=== PATIENT | female | born 1935 | race Hispanic/Latino ===

== ENCOUNTER 2017-05-27 17:40 | Inpatient (IN) | payer MEDICARE, BC ==
[2017-05-27] MEDS ORDERED: Labetalol 5mg/ml (4ml) ONE ×2 (17:46→18:13)
[2017-05-27] MEDS ORDERED: Labetalol 5mg/ml (4ml) IVP STA ×2 (17:49→18:12)
--- NOTE | 2017-05-27 17:49 | ED PDOC ---
HPI:STROKE - Time Time: 17:55 - Historian Historian: Patient, EMS - Chief Complaint Chief Complaint: Weakness, Mental status change - Onset Date: 05/27/17 Time: 17:15 - Timing Timing: Currently Symptomatic - Location Locate left: Lower extremity - TPA Positive for Contraindication: Yes Reason tPA is not being Administered: CT concerning for brain metastasis - Notes: Notes:: 81yo female arrives via ALS, per EMS report was at a restaurant had a sudden change in mental status with weakness of left side and neglect. Had loss of consciousness for approx 90sec also, unclear if seizure activity reported. EMS reports hypertensive and tachycardic en route. On arrival to ED had improved left side strength with partial neglect, confusion and mild word finding difficulties. History limited given AMS. NIHSS Stroke Scale - Date/Time Evaluation Performed Date Performed: 05/27/17 Time Performed: 17:46 When Was NIHSS Performed: Baseline - How Severe is the Stroke Level of Consciousness: 0=Alert LOC to Questions: 1=One correct LOC to commands: 1=Obeys one correctly Best Gaze: 1=Partial gaze palsy Visual: 0=No visual loss Facial: 1=Minor asymmetry Motor Arm - Left: 1=Drift noted before 10 sec Motor Arm - Right: 0=No drift Motor Leg - Left: 1=Drift before 5 sec Motor Leg - Right: 0=No drift Limb Ataxia: 1=Present Upper or Lower Sensory: 0=Normal Best Language: 0=No aphasia Dysarthia: 0=Normal articulation Extinction & Inattention (Neglect): 1=Partial neglect (mild hernandez-attention) Score: 8 rTPA Inclusion/Exclusion - Refusal of Treatment Patient Refused Treatment: No - Inclusion Criteria for Altepase Patient is 18 years or Older: Yes The Clinical Diagnosis of Ischemic Stroke That is Causing a Potentially Disabling Neurological Deficit: No Time of Onset is Well Established to be Less Than 270 Minute Before Treatment Would Begin: No Risk/Benefit Discussed With Patient/Family Member Present: Yes - Exclusion Criteria for Altepase Uncontrolled Hypertension at Time of Treatment (Systolic BP above 185 or Diastolic BP above 110 mmHg): Yes Active Internal Bleeding: No - Warning to TPA With Conditions Following Conditions Weighed Against Anticipated Benefit: Yes Condition: Rapid Improvement, Age Greater Than 75 years Past Medical History Reviewed: Historical Data, Nursing Documentation, Vital Signs - Medical History PMH: Denies: No Chronic Diseases Other PMH: hasnt been to a PMD in 3-4 years - Surgical History Other surgeries: unknown at arrival, unable to obtain secondary to confusion - Family History Family History: States: Unknown Family Hx - Living Arrangements Living Arrangements: Other - Social History Current smoker - smoking cessation education provided: Yes - Home Medications Home Medications: Ambulatory Orders Medication Instructions Recorded Baclofen [Lioresal] 10 mg PO PRN PRN 05/28/17 Budesonide/Formoterol Fumarate 4.5 mcg PRN PRN 05/28/17 [Symbicort 160-4.5 Mcg Inhaler] Diclofenac Sodium [Voltaren] 100 gm TP PRN 05/28/17 Losartan/Hydrochlorothiazide 1 each PO AC 05/28/17 [Losartan-Hctz 100-12.5 mg Tab] Loteprednol Etabonate [Alrex 5 ml] 5 ml OP BID 05/28/17 MetFORMIN [glucoPHAGE] 1,000 mg AC 05/28/17 Montelukast Sodium [Singulair] 10 mg PO AC 05/28/17 Morphine [MS Contin] 60 mg PO BID 05/28/17 Omeprazole 40 mg PO AC 05/28/17 Oxycodone HCl/Acetaminophen 1 each PO PRN 05/28/17 [Percocet 10-325 mg Tablet] Oxycodone HCl/Acetaminophen 1 each PO Q6 05/28/17 [Percocet 10-325 mg Tablet] Pravastatin Sodium [Pravachol] 40 mg PO AC 05/28/17 Pregabalin [Lyrica] 75 mg PO AC 05/28/17 Sertraline [Zoloft] 25 mg PO AC 05/28/17 - Allergies Allergies/Adverse Reactions: Allergies Allergy/AdvReac Type Severity Reaction Status Date / Time No Known Allergies Allergy Verified 05/27/17 17:46 Review of Systems Review Of Systems: ROS cannot be obtained secondary to pt's inabilty to answer questions. Physical Exam - Reviewed Nursing Documentation Reviewed: Yes Vital Signs Reviewed: Yes - Physical Exam Appears: Positive for: Non-toxic (word finding difficulties / slow to respond but clear speech) Head Exam: Positive for: ATRAUMATIC, NORMAL INSPECTION, NORMOCEPHALIC Skin: Positive for: Warm, Pallor Eye Exam: Positive for: PERRL. Negative for: EOMI (L neglect on arrival) ENT: Positive for: Normal ENT Inspection. Negative for: Tonsillar Exudate Neck: Positive for: Normal, Painless ROM Cardiovascular/Chest: Positive for: Tachycardia Respiratory: Positive for: Normal Breath Sounds. Negative for: Respiratory Distress Gastrointestinal/Abdominal: Positive for: Bowel Sounds, Soft. Negative for: Tenderness Back: Positive for: Normal Inspection Extremity: Positive for: Normal ROM Neurologic/Psych: Positive for: Alert, Motor/Sensory Deficits (LUE and LLE strength 4/5, RUE/RLE 5/5, intermittent L neglect, AAOx2 (person/hospital)), Facial Droop (trace L facial droop, resolved in ED) - Laboratory Results Result Diagrams: 05/28/17 04:30 05/28/17 02:00 - ECG ECG: Positive for: Interpreted By Me ECG Rhythm: Positive for: Sinus Rhythm, Nonspecific Changes Rate: 90 O2 Sat by Pulse Oximetry: 96 Pulse Ox Interpretation: Normal - Radiology X-Ray: Interpreted by Me X-Ray Interpretation: Other (R lower lobe mass/infiltrate) - Critical Care Total Time (In Min): 75 Comments: pt required immediate and recurrent bedside attention for unstable vital signs and concern for acute cerebral event on arrival Medical Decision Making Medical Decision Making: Code stroke was initiated Labetolol initiated for malignant hypertension and tachycardia CT brain reviewed w Dr Phillips radiologist, acute or subacute infarct R MCA w edema Given known rapid onset TPA was initially considered however after CXR reviewed and d/w neurology Dr Stokes concern for cytotoxic edema from metastasis considered thus TPA held. CTA head/neck no large vessel occlusion. ASA initiated. labs reviewed, mild hyperglycemia. BP and tachycardia improved over ED course. Mental status improved although intermittent periods of L neglect and confusion. Discussed initial findings w family- concern for malignancy w mets given long smoking history 40+ years. Hasnt been to PMD in many years. They state prior she was very function, drove herself to the restaurant tonight. Keppra loaded for likely seizure /post ictal period prehospital and on arrival. Dr Stokes saw patient at bedside. MRI brain pending at time of admission. No PMD admitted medicine nutritional services cook Dr Ronnie Armas ICU to handle care overnight. Disposition - Clinical Impression Clinical Impression: Lung mass, Intracranial mass - Patient ED Disposition Is Patient to be Admitted: Yes Counseled Patient/Family Regarding: Studies Performed, Diagnosis - Disposition Disposition Time: 18:55 Condition: FAIR - Pt Status Changed To: Hospital Disposition Of: Inpatient - Admit Certification Admit to Inpatient:: After my assessment, the patient will require hospitalization for at least two midnights. This is because of the severity of symptoms shown, intensity of services needed, and/or the medical risk in this patient being treated as an outpatient. - POA Present On Arrival: None
[2017-05-27 17:52] VITALS: BMI 18.3
[2017-05-27] MEDS ORDERED: Iodixanol 320 MG/ML 100 ML BOTTLE IV ONE (17:57)
[2017-05-27] MEDS ORDERED: Sodium Chloride 0.9% 100 ML ONE (17:57)
[2017-05-27] MEDS ORDERED: Sodium Chloride 0.9% 1,000 ML IV SCH (18:00)
--- NOTE | 2017-05-27 18:18 | CT ---
PROCEDURE: CT HEAD WITHOUT CONTRAST. HISTORY: code stroke COMPARISON: None available. TECHNIQUE: Axial computed tomography images were obtained through the head/brain without intravenous contrast. Radiation dose: Total exam DLP = 826.15 mGy-cm. This CT exam was performed using one or more of the following dose reduction techniques: Automated exposure control, adjustment of the mA and/or kV according to patient size, and/or use of iterative reconstruction technique. FINDINGS: HEMORRHAGE: No intracranial hemorrhage. BRAIN: Cytotoxic edema is identified at the right temporoparietal distribution moderately reflecting a partial right MCA acute or subacute brain infarction. Limited local mass effect is appreciated at the affected right temporal parietal distribution. There is also lucency identified at the inferior left frontal lobe medially. Artifact from the frontal bones obscure this area somewhat. This may represent an acute or even chronic infarct. Is difficult to differentiate between the two at this time. There is no significant mass effect. Follow-up MRI is advised. Limited bifrontal chronic lacunes are dilated perivascular spaces are identified. A diffuse cerebral atrophy and chronic microangiopathy are manifest by expansion of the ventricular sulcal sternal spaces as well as limited periventricular and occasional subcortical white matter lucency. Posterior fossa contents appear grossly nonfocal. VENTRICLES: Unremarkable. No hydrocephalus. CALVARIUM: Unremarkable. PARANASAL SINUSES: A 1.4 cm hyperdensity seen related to the left frontal sinus suggestive of probable osteoma. Perineal sinuses are otherwise unremarkable. MASTOID AIR CELLS: Unremarkable as visualized. No inflammatory changes. OTHER FINDINGS: None. IMPRESSION: Findings suggest acute or subacute brain infarction and sub distribution of the right MCA. Lucency at the medial left frontal base is suspicious for this same though a chronic infarct is difficult to completely exclude here. Follow-up MRI is advised. No intracranial hemorrhage is appreciated. Limited local mass effect effaces a few sulci at the right temporoparietal infarction territory. Limited age-related neuro degenerative changes. Questionable chronic lacunes bilateral frontal lobes. Findings discussed with Dr. Carroll 05/27/2017 6:10 p.m.
[2017-05-27 18:45] LABS: BASO % 0.4 % (0.0-2.0); HEMOGLOBIN 12.1 g/dL (12.0-16.0); LYMPH # 1.6 K/uL (1.0-4.3); LYMPH % 24.3 % (20.0-40.0); MEAN CELL VOLUME 97.5 fl (81.0-99.0); MEAN CORPUSCULAR HEMOGLOBIN 33.5 pg (27.0-31.0); MEAN CORPUSCULAR HGB CONC 34.4 g/dL (33.0-37.0); MEAN PLATELET VOLUME 7.3 fl (7.2-11.7); MONO # 0.3 K/uL (0.0-0.8); MONO % 5.4 % (0.0-10.0); NEUT # 4.5 K/uL (1.8-7.0); NEUT % 69.9 % (50.0-75.0); RBC 3.61 Mil/uL (3.80-5.20); RED CELL DISTRIBUTION WIDTH 13.6 % (11.5-14.5); WHITE BLOOD COUNT 6.5 K/uL (4.8-10.8)
--- NOTE | 2017-05-27 18:47 | CT ---
PROCEDURE: CT Angiography of the Brain. HISTORY: neglect, L weakness COMPARISON: None available. TECHNIQUE: CT angiography of the intracranial arteries was performed. Coronal and sagittal maximum intensity projection reformated images were generated. Contrast Dose: Visipaque 320, 80 cc Radiation dose: Total exam DLP = 2355.59 mGy-cm. This CT exam was performed using one or more of the following dose reduction techniques: Automated exposure control, adjustment of the mA and/or kV according to patient size, and/or use of iterative reconstruction technique. This CT exam was performed using one or more of the following dose reduction techniques: Automated exposure control, adjustment of the mA and/or kV according to patient size, and/or use of iterative reconstruction technique. FINDINGS: INTERNAL CEREBRAL ARTERIES: Unremarkable. The skull base, petrous, and supraclinoid segments are bilaterally widely patent. Mild atherosclerotic plaque is seen at the left greater the right cavernous internal carotid artery segments bilaterally. ANTERIOR CEREBRAL ARTERIES: Unremarkable. A1 and A2 segments are widely patent. Smaller distal branches unremarkable, as visualized. MIDDLE CEREBRAL ARTERIES: Unremarkable. M1 and M2 segments are widely patent. Perisylvian branches grossly symmetric. POSTERIOR CIRCULATION: Basilar Artery: Unremarkable. Distal Vertebral Arteries: Unremarkable. Posterior Cerebral Arteries: Unremarkable. Posterior Inferior Cerebellar Arteries: Unremarkable. NECK CTA: Common Carotid arteries: The vast majority of the bilateral common carotid artery appears widely patent from their origins up to the bilateral carotid bulb levels. However, there is mild to moderate atherosclerotic plaque identified in the right carotid bulb and prominent left carotid bulbar atherosclerotic plaque. Left-sided atheroma extends into the proximal left ICA somewhat. Internal Carotid arteries: No significant right internal carotid artery stenosis identified. However, there is a moderate left ICA stenosis at the origin due to excessive left carotid bulbar atherosclerosis. External Carotid arteries: Appear unremarkable bilaterally. Vertebral arteries: The bilateral vertebral arteries appear normal in caliber from their origins to their junction with the basilar artery. No significant stenosis or definite pattern of dissection. ANEURYSM/ VASCULAR MALFORMATIONS: None. OTHER FINDINGS: None. IMPRESSION: Other than limited bilateral cavernous ICA atherosclerotic changes, intracranial MR angiogram is otherwise unremarkable and there is no evidence of definite arterial occlusion or significant stenosis. Extensive left carotid bulbar plaque extends into the left ICA origin resulting in a moderate stenosis by standard NASCET criteria. The remainder of the left ICA is widely patent. No significant right common or internal carotid stenosis identified. Mild right carotid bulbar atherosclerotic plaque.
[2017-05-27 19:04] LABS: ALBUMIN 3.5 g/dL (3.5-5.0); CALCIUM 8.2 mg/dL (8.4-10.2)
[2017-05-27 19:13] LABS: INR 0.9 (0.9-1.2); PARTIAL THROMBOPLASTIN TIME 22.8 Seconds (25.6-37.1)
[2017-05-27 19:18] LABS: TROPONIN I 0.053 ng/mL (0.00-0.120)
[2017-05-27] MEDS ORDERED: Labetalol 5mg/ml (4ml) IVP PRN (19:57)
[2017-05-27] MEDS ORDERED: Acetaminophen 325 MG/10.15 ML NG PRN (19:59)
[2017-05-27] MEDS ORDERED: Gadodiamide 287 MG/ML VIAL (15ML) IV ONE (20:06)
--- NOTE | 2017-05-27 21:07 | CP.PCM.CON ---
History of Present Illness - History of Present Illness History of Present Illness: HPI: became unresponsive, ?L sided weakness HPI: This is a 81 y/o female with no diagnosed chronic medical conditions. From what she remembers, she states that she drove to a restaurant and was having dinner with a friend and then she remembers EMS bringing her to the hospital. Apparently, per report, she was demonstrating L sided neglect and/or weakness and then became unresponsive for some unspecified period of time. This had mostly resolved in the ED. Patient had a stroke w/u in ED and NIH score was 8. On CT however, she had some suspicious appearing lesions and was sent for MRI. Patient was not a candidate for TPA, tali given these lesions. Currently patient has no c/c other than JIMENEZ. No CP, SOB. No f/c/n/v/d. She denies CP/SOB at this time. No f/c. No Cough. ROS: 14 systems reviewed, negative other than HPI MHx: No known prior MHx SHx: None Allergies: NKDA Medications: No Rx medications Family Hx: Patient cannot provide Social Hx: Patient lives alone but has family nearby, no tobacco, no EtOH Surrogate Dec Mkr: Daughter, info on chart Past Patient History - Past Social History Smoking Status: Never Smoked - PSYCHIATRIC Hx Substance Use: No - SURGICAL HISTORY Other/Comment: unable to obtain information Meds Allergies/Adverse Reactions: Allergies Allergy/AdvReac Type Severity Reaction Status Date / Time No Known Allergies Allergy Verified 05/27/17 17:46 - Medications Medications: Current Medications Acetaminophen (Tylenol 325mg Tab) 650 mg PO Q6 PRN PRN Reason: Fever >100.4 F Aspirin (Ecotrin) 81 mg PO DAILY NOREEN Atorvastatin Calcium (Lipitor) 40 mg PO DAILY NOREEN Insulin Human Lispro (Humalog) 0 units SC ACHS NOREEN PRN Reason: Protocol Labetalol HCl (Trandate) 10 mg IVP Q6H PRN PRN Reason: SBP > 180 Ondansetron HCl (Zofran Inj) 4 mg IVP Q6H PRN PRN Reason: Nausea/Vomiting Physical Exam - Constitutional Appears: No Acute Distress - Head Exam Head Exam: ATRAUMATIC, NORMOCEPHALIC - Eye Exam Eye Exam: EOMI, PERRL - ENT Exam ENT Exam: Mucous Membranes Moist - Neck Exam Neck exam: Positive for: Full Rom - Respiratory Exam Respiratory Exam: Clear to Auscultation Bilateral, NORMAL BREATHING PATTERN - Cardiovascular Exam Cardiovascular Exam: REGULAR RHYTHM, +S1, +S2 - GI/Abdominal Exam GI & Abdominal Exam: Normal Bowel Sounds, Soft - Extremities Exam Extremities exam: Positive for: full ROM, normal inspection - Neurological Exam Neurological exam: Alert, Oriented x3 Additional comments: patient with poor hearing, o/w no focal deficits - Psychiatric Exam Psychiatric exam: Normal Affect, Normal Mood - Skin Skin Exam: Dry, Warm Results - Vital Signs Recent Vital Signs: Last Vital Signs Temp 98.8 F 05/27/17 19:30 Pulse 90 05/27/17 19:30 Resp 13 05/27/17 19:30 BP 156/85 H 05/27/17 19:30 Pulse Ox 92 L 05/27/17 19:30 - Labs Result Diagrams: 05/27/17 18:30 05/27/17 18:30 Labs: Laboratory Results - last 24 hr 05/27/17 05/27/17 05/27/17 18:30 18:30 18:30 WBC 6.5 RBC 3.61 L Hgb 12.1 Hct 35.2 MCV 97.5 MCH 33.5 H MCHC 34.4 RDW 13.6 Plt Count 257 MPV 7.3 Neut % (Auto) 69.9 Lymph % (Auto) 24.3 [place] % (Auto) 5.4 Eos % (Auto) 0.0 Baso % (Auto) 0.4 Neut # (Auto) 4.5 Lymph # (Auto) 1.6 [place] # (Auto) 0.3 Eos # (Auto) 0.0 Baso # (Auto) 0.0 PT 10.0 INR 0.9 APTT 22.8 L Sodium 133 Potassium 4.8 Chloride 103 Carbon Dioxide 19 L Anion Gap 16 BUN 28 H Creatinine 1.1 Est GFR ( Amer) 58 Est GFR (Non-Af Amer) 48 Random Glucose 194 H Calcium 8.2 L Total Bilirubin 0.6 AST 36 ALT 13 Alkaline Phosphatase 75 Troponin I 0.0530 Total Protein 7.1 Albumin 3.5 Globulin 3.5 Albumin/Globulin Ratio 1.0 Triglycerides 112 Cholesterol 165 LDL Cholesterol Direct 55 HDL Cholesterol 83 H Blood Type Antibody Screen BBK History Checked 05/27/17 18:30 WBC RBC Hgb Hct MCV MCH MCHC RDW Plt Count MPV Neut % (Auto) Lymph % (Auto) [place] % (Auto) Eos % (Auto) Baso % (Auto) Neut # (Auto) Lymph # (Auto) [place] # (Auto) Eos # (Auto) Baso # (Auto) PT INR APTT Sodium Potassium Chloride Carbon Dioxide Anion Gap BUN Creatinine Est GFR ( Amer) Est GFR (Non-Af Amer) Random Glucose Calcium Total Bilirubin AST ALT Alkaline Phosphatase Troponin I Total Protein Albumin Globulin Albumin/Globulin Ratio Triglycerides Cholesterol LDL Cholesterol Direct HDL Cholesterol Blood Type O POSITIVE Antibody Screen Negative BBK History Checked No verified bt - EKG Data EKG Interpreted by: Myself EKG shows normal: Sinus rhythm Rate: Normal - EKG Data When Compared to Previous EKG: No Significant Change EKG comments: NSR, possible LVH - Imaging and Cardiology Chest x-ray Status: Image reviewed by me (?scarring or opacity R lung field) MRI - head Status: Image reviewed by me (b/l enhancing lesions c/f mets), Report reviewed by me Assessment & Plan (1) Acute CVA (cerebrovascular accident) Assessment and Plan: 81 y/o female with no known chronic medical conditions who comes in with symptoms c/f an acute CVA, however, she is found on MRI to have multiple lesions suspicious for mets and ?lesion on CXR. -admit ICU -Serial trops, Echo ordered as part of CVA workup for now, though this may not be CVA -Neuro consult in AM -ASA and high dose statin (starting 40 mg) -- continue for now; if clear there was no cva/tia, can d/c these -Given IC edema, will start IV decadron 4 mg q6h + PPI -Patient given dose of IV keppra in ER; defer to neuro to continue or not -ACHS accucheck + SSI; A1C pending -Tylenol for fevers PRN -SCDs for DVT PPx for now Status: Acute (2) Intracranial mass Status: Acute (3) Lung mass Status: Acute (4) DVT prophylaxis Status: Acute
[2017-05-27] MEDS: Insulin Lispro (humaLOG) 100 Units/ml Inj SC SCH (22:15)
--- NOTE | 2017-05-27 22:51 | MRI ---
EXAM: MR Head Without and With Intravenous Contrast CLINICAL HISTORY: 81 years old, female; Signs and symptoms; Other: R/O mets, , code stroke; Additional info: RO mets TECHNIQUE: Magnetic resonance images of the head/brain without and with intravenous contrast in multiple planes. CONTRAST: 12 mL of OMNISCAN administered intravenously. COMPARISON: CTA HEAD/NECK CODE STROKE 2017-05-27 18:01 FINDINGS: Brain: There are multiple enhancing lesions in the cerebral hemisphere bilaterally consistent with metastasis. The largest lesion is in the right posterior temporal lobe measuring 2.2 x 1.9 x 1.6 cm with moderate surrounding vasogenic edema. There is a 9 x 8 x 6 mm enhancing lesion in the inferior left frontal lobe with surrounding edema. There is a 4 x 6 x 5 mm enhancing lesion in the right anterior temporal lobe. There is a 9 x 7 x 7 mm enhancing lesion in the right posterior parietal cortex. The There is no evidence of acute infarct or hemorrhage. There are punctate foci of hypointense signal on T2-weighted gradient echo imagesconsistent with hemosiderin products from chronic microhemorrhage. There is mild diffuse cerebral atrophy present, consistent with this patient's age. There is mild patchy increased signal intensity within the subcortical white matter, consistent with chronic ischemic changes. Ventricles: The ventricular system demonstrates mild diffuse compensatory enlargement. Bones/joints: Unremarkable. Sinuses: Unremarkable as visualized. No acute sinusitis. Mastoid air cells: Unremarkable as visualized. No mastoid effusion. Orbits: Unremarkable as visualized. IMPRESSION: Multiple enhancing lesions in the bilateral cerebral hemisphere consistent with metastasis. No evidence of acute infarct.
[2017-05-27] MEDS ORDERED: Dexamethasone 4 MG in Sodium Chloride 0.9% 50 ML IVPB SCH (23:59)
[2017-05-28] MEDS ORDERED: Dexamethasone 4 mg/1 ml IVP SCH (00:15)
--- NOTE | 2017-05-28 00:29 | CP.PCM.CON ---
History of Present Illness - History of Present Illness History of Present Illness: 81 yr old woman, right handed, who was in her usual state of health until approximately 2 hours ago, when she developed an acute change in mental status. She was at a restaurant, drove there and was found to have some word finding difficulty and right arm weakness that the family thinks was new. This resolved quickly however. The patient was a heavy smoker but never had a history of lung cancer. We decided not to give TPA in light of hypodensities in bilateral cerebral hemispheres that i felt may be mets and were too dark to be strokes. PMH/PSH: pnh of lung ca FH/SH: long time smoker, occasional etoh. Has several children. All: nkda. on exam: aaox3. speech slightly dysarthric. Can name some objects, repetition intact. VFF Right sided weakness, arm. 5/5 all other muscle groups. sensory: nodeficits. +3 dtr ul and ll. Past Patient History - Past Social History Smoking Status: Never Smoked - PSYCHIATRIC Hx Substance Use: No - SURGICAL HISTORY Other/Comment: unable to obtain information Meds Allergies/Adverse Reactions: Allergies Allergy/AdvReac Type Severity Reaction Status Date / Time No Known Allergies Allergy Verified 05/27/17 17:46 - Medications Medications: Current Medications Sodium Chloride (Sodium Chloride 0.9%) 1,000 mls @ 100 mls/hr IV .Q10H NOREEN Last Admin: 05/27/17 18:37 Dose: 100 mls/hr Results - Vital Signs Recent Vital Signs: Last Vital Signs Temp 98.3 F 05/27/17 18:47 Pulse 78 05/27/17 18:47 Resp 20 05/27/17 18:47 BP 150/70 05/27/17 18:47 Pulse Ox 98 05/27/17 18:47 - Labs Result Diagrams: 05/27/17 18:30 05/27/17 18:30 Labs: Laboratory Results - last 24 hr 05/27/17 05/27/17 05/27/17 18:30 18:30 18:30 WBC 6.5 RBC 3.61 L Hgb 12.1 Hct 35.2 MCV 97.5 MCH 33.5 H MCHC 34.4 RDW 13.6 Plt Count 257 MPV 7.3 Neut % (Auto) 69.9 Lymph % (Auto) 24.3 [place] % (Auto) 5.4 Eos % (Auto) 0.0 Baso % (Auto) 0.4 Neut # (Auto) 4.5 Lymph # (Auto) 1.6 [place] # (Auto) 0.3 Eos # (Auto) 0.0 Baso # (Auto) 0.0 PT 10.0 INR 0.9 APTT 22.8 L Sodium 133 Potassium 4.8 Chloride 103 Carbon Dioxide 19 L Anion Gap 16 BUN 28 H Creatinine 1.1 Est GFR ( Amer) 58 Est GFR (Non-Af Amer) 48 Random Glucose 194 H Calcium 8.2 L Total Bilirubin 0.6 AST 36 ALT 13 Alkaline Phosphatase 75 Troponin I 0.0530 Total Protein 7.1 Albumin 3.5 Globulin 3.5 Albumin/Globulin Ratio 1.0 Triglycerides 112 Cholesterol 165 LDL Cholesterol Direct 55 HDL Cholesterol 83 H BBK History Checked 05/27/17 18:30 WBC RBC Hgb Hct MCV MCH MCHC RDW Plt Count MPV Neut % (Auto) Lymph % (Auto) [place] % (Auto) Eos % (Auto) Baso % (Auto) Neut # (Auto) Lymph # (Auto) [place] # (Auto) Eos # (Auto) Baso # (Auto) PT INR APTT Sodium Potassium Chloride Carbon Dioxide Anion Gap BUN Creatinine Est GFR ( Amer) Est GFR (Non-Af Amer) Random Glucose Calcium Total Bilirubin AST ALT Alkaline Phosphatase Troponin I Total Protein Albumin Globulin Albumin/Globulin Ratio Triglycerides Cholesterol LDL Cholesterol Direct HDL Cholesterol BBK History Checked No verified bt - Imaging and Cardiology CT scan - head Status: Image reviewed by me, Report reviewed by me (ct shows inferior left frontal lobe hypodensity with vasogenic edema and right temporo parietal lobe lesion, no midine shift but with mass effect. ) Assessment & Plan - Assessment and Plan (Free Text) Assessment: 81 yr old woman with presentation that suggests acute stroke, but neuroimaging showing left frontal lesion that is hypodense and a right parietotemporal lesion hypodense with no hemorrhagic conversion, whose NIH scale shows that she has right sided weakness, and aphasia, minimal, and right sided weakness. She is not a TPA candidate, but I am very concerned that she has mets to the brain, with her history of smoking. PLan: 1. MRI Brain with and without contrast stat 2. Stroke workup including ECHO, CTA, lipid profile, 3. PT.ST,OT
[2017-05-28 02:34] LABS: CALCIUM 8.8 mg/dL (8.4-10.2)
[2017-05-28 02:50] LABS: TROPONIN I 2.45 ng/mL (0.00-0.120)
[2017-05-28 05:37] LABS: HEMOGLOBIN 12.5 g/dL (12.0-16.0); MEAN CELL VOLUME 96.2 fl (81.0-99.0); MEAN CORPUSCULAR HEMOGLOBIN 33.5 pg (27.0-31.0); MEAN CORPUSCULAR HGB CONC 34.8 g/dL (33.0-37.0); RBC 3.74 Mil/uL (3.80-5.20); RED CELL DISTRIBUTION WIDTH 13.3 % (11.5-14.5); WHITE BLOOD COUNT 6.4 K/uL (4.8-10.8)
[2017-05-28] MEDS: Dexamethasone 4 mg/1 ml IVP SCH ×4 (05:54→22:09)
[2017-05-28] MEDS: Insulin Lispro (humaLOG) 100 Units/ml Inj SC SCH ×4 (07:55→22:09)
[2017-05-28] MEDS: Pantoprazole 40 mg EC Tab PO SCH ×2 (08:51→09:12)
[2017-05-28] MEDS ORDERED: Pneumococcal 23-Valent Vaccine IM ONE (09:00)
--- NOTE | 2017-05-28 09:06 | RAD ---
HISTORY: Code Stroke COMPARISON: No prior. FINDINGS: LUNGS: Right basilar opacity. Right hilar surgical clips. Prominence of the bilateral interstitial markings, likely chronic. PLEURA: No significant pleural effusion identified, no pneumothorax apparent. CARDIOVASCULAR: Atherosclerotic aortic calcifications. Cardiomediastinal silhouette enlarged. OSSEOUS STRUCTURES: Degenerative changes. VISUALIZED UPPER ABDOMEN: Excreted intravenous contrast in the renal collecting systems. OTHER FINDINGS: None. IMPRESSION: Right basilar opacity representing infiltrate versus neoplasm. Follow-up to resolution. Alternatively, CT scan can be obtained for further evaluation.
--- NOTE | 2017-05-28 10:15 | CP.PCM.PN ---
Subjective - Date & Time of Evaluation Date of Evaluation: 05/28/17 Time of Evaluation: 10:12 - Subjective Subjective: Ms. Booth was seen and examined at the bedside in ICU. She is alert, oriented. She denies any headache, dizziness, lightheadedness, blurred vision, or diplopia. She is able to follow commands. She claims of inability to sleep last night. MRI of the brain showed multiple enhancing lesions in the bilateral cerebral hemisphere consistent with metastasis. No evidence of acute infarct. She has escalante catheter draining to a clear yellow urine. There was no untoward events overnight. Objective - Vital Signs/Intake and Output Vital Signs (last 24 hours): Temp Pulse Resp BP Pulse Ox 97.5 F L 90 27 H 126/92 H 96 05/28/17 08:00 05/28/17 09:59 05/28/17 08:00 05/28/17 08:00 05/28/17 09:59 Intake and Output: 05/28/17 05/28/17 06:59 18:59 Intake Total 1060 Output Total 100 Balance 960 - Medications Medications: Current Medications Acetaminophen (Tylenol 325mg Tab) 650 mg PO Q6 PRN PRN Reason: Fever >100.4 F Acetaminophen (Tylenol 325mg Tab) 650 mg PO Q6H PRN PRN Reason: Pain, Mild (1-3), headache Aspirin (Aspirin) 325 mg PO DAILY [facility] Last Admin: 05/28/17 09:12 Dose: 325 mg Atorvastatin Calcium (Lipitor) 40 mg PO DAILY [facility] Last Admin: 05/28/17 09:12 Dose: 40 mg Dexamethasone (Decadron Inj) 4 mg IVP Q6 [facility] Last Admin: 05/28/17 05:54 Dose: 4 mg Insulin Human Lispro (Humalog) 0 units SC ACHS [facility] PRN Reason: Protocol Last Admin: 05/28/17 07:55 Dose: Not Given Labetalol HCl (Trandate) 10 mg IVP Q6H PRN PRN Reason: SBP > 180 Metoprolol Tartrate (Lopressor) 25 mg PO Q12 [facility] Last Admin: 05/28/17 06:42 Dose: 25 mg Pantoprazole Sodium (Protonix Ec Tab) 40 mg PO DAILY [facility] Last Admin: 05/28/17 09:12 Dose: 40 mg - Labs Labs: 05/28/17 04:30 05/28/17 02:00 PT 10.0 Seconds (9.8-13.1) 05/27/17 18:30 INR 0.9 (0.9-1.2) 05/27/17 18:30 APTT 22.8 Seconds (25.6-37.1) L 05/27/17 18:30 - Constitutional Appears: No Acute Distress - Head Exam Head Exam: NORMAL INSPECTION - Neurological Exam Neurological Exam: Alert, Awake, Oriented x3 Neuro motor strength exam: Left Upper Extremity: 5, Right Upper Extremity: 5, Left Lower Extremity: 5, Right Lower Extremity: 5 Additional comments: aaox3. speech slightly dysarthric. Can name some objects, repetition intact.Right sided weakness, arm. 5/5 all other muscle groups. Sensation remains intact. Assessment and Plan (1) Intracranial mass Assessment & Plan: Case discussed with Dr. Stokes, continue all current medical, physical, and occupational therapies. Pending echocardiogram. Status: Acute
[2017-05-28] MEDS ORDERED: Iohexol 240 (50 ml) PO ONE (11:42)
--- NOTE | 2017-05-28 11:42 | CP.CCUPN ---
CCU Subjective - Physician Review Subjective (Free Text): All Physician notes ad Nursing notes reviewed: Awake and responsive, no new focal deficits. Brief episode of nausea and vomiting this AM. No observed seizure activity, though appears disoriented to time. Other Vitals and I/Os reviewed. ROS: No other pertinent negs or positives on 10+ system review. PMSFH: All other historical Nursing and physician documentation reviewed to date; no new pertinent info noted relevant to current medical problems. CT and MRI brain imaging results reviewed: R posterior temporal / R anterior temporal/ L Inferior frontal / R posterior parietal areas of metastatic appearing lesions. CXR: shows RLL peripheral haziness. EKG: sinus 90, +LVH, no ischemic ST-T wave changes. IMPRESSION / MAJOR PROBLEMS NOW: 1. 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 r/o other ischemic / thrombotic CVA 4. Azotemia / Dehydration 5. Troponin elevation 2 TEACHER PHYSICALLY IMPAIRED lesions and Neurosympathetic disease, r/o Myocardial Ischemia PLAN: 1. HOB elevation, Neurochecks, Seizure precautions. Decadron as per Neurology. Discuss with Neurology : re- Mannitol use. 2. Cautious Saline IVF hydration. 3. CT Chest to further delineate RLL findings, r/o tumor Lung CA 4. Consider Neurosurgical eval. 5. ECHO ordered. CCU Objective - Vital Signs / Intake & Output Vital Signs (Last 4 hours): Vital Signs Temp Pulse Resp BP Pulse Ox 05/28/17 10:00 79 19 156/84 H 100 05/28/17 09:59 90 96 05/28/17 08:00 97.5 F L 86 27 H 126/92 H 90 L Intake and Output (Last 8hrs): Intake & Output 05/27/17 05/28/17 05/28/17 22:59 06:59 14:59 Intake Total 1000 60 100 Output Total 100 10 Balance 900 60 90 Weight 114 lb 14.4 oz Intake: IV 1000 Oral 60 100 Output: Urine 100 Urethral ([place]il[place]) 100 Emesis 10 - Physical Exam Head: Positive for: Normocephalic Pupils: Positive for: PERRL Extroacular Muscles: Positive for: EOMI Conjunctiva: Positive for: Normal. Negative for: Icteric Ears: Positive for: Normal Mouth: Positive for: Moist Mucous Membranes Neck: Positive for: Normal Range of Motion. Negative for: JVD Respiratory/Chest: Positive for: Clear to Auscultation, Tender to Palpation Cardiovascular: Positive for: Regular Rate and Rhythm. Negative for: Murmurs, Normal S1, S2, Rub Abdomen: Positive for: Normal Bowel Sounds, Mass/Organomegaly. Negative for: Tenderness, Distention, Rebound Lower Extremity: Positive for: Cyanosis. Negative for: Edema, CALF TENDERNESS, NORMAL PULSES Skin: Positive for: Warm, Dry Psychiatric: Positive for: Alert. Negative for: Oriented x 3 (person and place only), Anxious, Agitated - Medications Active Medications: Active Medications Generic Name Dose Route Start Last Admin Trade Name Freq PRN Reason Stop Dose Admin Acetaminophen 650 mg 05/27/17 20:05 Tylenol 325mg Tab PO Q6 PRN Fever >100.4 F Acetaminophen 650 mg 05/27/17 23:51 Tylenol 325mg Tab PO Q6H PRN Pain, Mild (1-3), headache Aspirin 325 mg 05/28/17 09:00 05/28/17 09:12 Aspirin PO 325 mg DAILY [facility] Administration Atorvastatin Calcium 40 mg 05/28/17 07:00 05/28/17 09:12 Lipitor PO 40 mg DAILY [facility] Administration Dexamethasone 4 mg 05/28/17 04:00 05/28/17 10:37 Decadron Inj IVP 4 mg Q6 [facility] Administration Insulin Human Lispro 0 units 05/27/17 22:00 05/28/17 07:55 Humalog SC Not Given ACHS [facility] Protocol Labetalol HCl 10 mg 05/27/17 19:57 Trandate IVP Q6H PRN SBP > 180 Metoprolol Tartrate 25 mg 05/28/17 06:30 05/28/17 06:42 Lopressor PO 25 mg Q12 [facility] Administration Pantoprazole Sodium 40 mg 05/28/17 09:00 05/28/17 09:12 Protonix Ec Tab PO 40 mg DAILY [facility] Administration - Patient Studies Lab Studies: Lab Studies 05/28/17 05/28/17 05/28/17 Range/Units 10:25 06:22 04:30 WBC (4.8-10.8) K/uL RBC (3.80-5.20) Mil/uL Hgb (12.0-16.0) g/dL Hct (34.0-47.0) % MCV (81.0-99.0) fl MCH (27.0-31.0) pg MCHC (33.0-37.0) g/dL RDW (11.5-14.5) % Plt Count (130-400) K/uL MPV (7.2-11.7) fl Neut % (Auto) (50.0-75.0) % Lymph % (Auto) (20.0-40.0) % Addison % (Auto) (0.0-10.0) % Eos % (Auto) (0.0-4.0) % Baso % (Auto) (0.0-2.0) % Neut # (Auto) (1.8-7.0) K/uL Lymph # (Auto) (1.0-4.3) K/uL Addison # (Auto) (0.0-0.8) K/uL Eos # (Auto) (0.0-0.7) K/uL Baso # (Auto) (0.0-0.2) K/uL PT (9.8-13.1) Seconds INR (0.9-1.2) APTT (25.6-37.1) Seconds Sodium (132-148) mmol/l Potassium (3.6-5.0) MMOL/L Chloride (98-107) mmol/L Carbon Dioxide (22-30) mmol/L Anion Gap (10-20) BUN (7-17) mg/dl Creatinine (0.7-1.2) mg/dl Est GFR ( Amer) Est GFR (Non-Af Amer) POC Glucose (mg/dL) 144 H (65-110) mg/dL Random Glucose (65-105) mg/dL Calcium (8.4-10.2) mg/dL Total Bilirubin (0.2-1.3) mg/dl AST (14-36) U/L ALT (9-52) U/L Alkaline Phosphatase (38-126) U/L Troponin I 3.5900 H* 3.1700 H* (0.00-0.120) ng/mL Total Protein (6.3-8.2) G/DL Albumin (3.5-5.0) g/dL Globulin (2.2-3.9) gm/dL Albumin/Globulin Ratio (1.0-2.1) Triglycerides (0-149) mg/DL Cholesterol (0-199) mg/dL LDL Cholesterol Direct (0-129) mg/dL HDL Cholesterol (30-70) MG/DL Blood Type Blood Type Confirm Antibody Screen BBK History Checked 05/28/17 05/28/17 05/27/17 Range/Units 04:30 02:00 21:15 WBC 6.4 (4.8-10.8) K/uL RBC 3.74 L (3.80-5.20) Mil/uL Hgb 12.5 (12.0-16.0) g/dL Hct 35.9 (34.0-47.0) % MCV 96.2 (81.0-99.0) fl MCH 33.5 H (27.0-31.0) pg MCHC 34.8 (33.0-37.0) g/dL RDW 13.3 (11.5-14.5) % Plt Count 255 (130-400) K/uL MPV (7.2-11.7) fl Neut % (Auto) (50.0-75.0) % Lymph % (Auto) (20.0-40.0) % Addison % (Auto) (0.0-10.0) % Eos % (Auto) (0.0-4.0) % Baso % (Auto) (0.0-2.0) % Neut # (Auto) (1.8-7.0) K/uL Lymph # (Auto) (1.0-4.3) K/uL Addison # (Auto) (0.0-0.8) K/uL Eos # (Auto) (0.0-0.7) K/uL Baso # (Auto) (0.0-0.2) K/uL PT (9.8-13.1) Seconds INR (0.9-1.2) APTT (25.6-37.1) Seconds Sodium 133 (132-148) mmol/l Potassium 5.2 H (3.6-5.0) MMOL/L Chloride 101 (98-107) mmol/L Carbon Dioxide 18 L (22-30) mmol/L Anion Gap 19 (10-20) BUN 28 H (7-17) mg/dl Creatinine 1.1 (0.7-1.2) mg/dl Est GFR ( Amer) 58 Est GFR (Non-Af Amer) 48 POC Glucose (mg/dL) 165 H (65-110) mg/dL Random Glucose 161 H (65-105) mg/dL Calcium 8.8 (8.4-10.2) mg/dL Total Bilirubin (0.2-1.3) mg/dl AST (14-36) U/L ALT (9-52) U/L Alkaline Phosphatase (38-126) U/L Troponin I 2.4500 H* (0.00-0.120) ng/mL Total Protein (6.3-8.2) G/DL Albumin (3.5-5.0) g/dL Globulin (2.2-3.9) gm/dL Albumin/Globulin Ratio (1.0-2.1) Triglycerides (0-149) mg/DL Cholesterol (0-199) mg/dL LDL Cholesterol Direct (0-129) mg/dL HDL Cholesterol (30-70) MG/DL Blood Type Blood Type Confirm Antibody Screen BBK History Checked 05/27/17 05/27/17 05/27/17 Range/Units 19:37 18:30 18:30 WBC (4.8-10.8) K/uL RBC (3.80-5.20) Mil/uL Hgb (12.0-16.0) g/dL Hct (34.0-47.0) % MCV (81.0-99.0) fl MCH (27.0-31.0) pg MCHC (33.0-37.0) g/dL RDW (11.5-14.5) % Plt Count (130-400) K/uL MPV (7.2-11.7) fl Neut % (Auto) (50.0-75.0) % Lymph % (Auto) (20.0-40.0) % Addison % (Auto) (0.0-10.0) % Eos % (Auto) (0.0-4.0) % Baso % (Auto) (0.0-2.0) % Neut # (Auto) (1.8-7.0) K/uL Lymph # (Auto) (1.0-4.3) K/uL Addison # (Auto) (0.0-0.8) K/uL Eos # (Auto) (0.0-0.7) K/uL Baso # (Auto) (0.0-0.2) K/uL PT 10.0 (9.8-13.1) Seconds INR 0.9 (0.9-1.2) APTT 22.8 L (25.6-37.1) Seconds Sodium (132-148) mmol/l Potassium (3.6-5.0) MMOL/L Chloride (98-107) mmol/L Carbon Dioxide (22-30) mmol/L Anion Gap (10-20) BUN (7-17) mg/dl Creatinine (0.7-1.2) mg/dl Est GFR ( Amer) Est GFR (Non-Af Amer) POC Glucose (mg/dL) (65-110) mg/dL Random Glucose (65-105) mg/dL Calcium (8.4-10.2) mg/dL Total Bilirubin (0.2-1.3) mg/dl AST (14-36) U/L ALT (9-52) U/L Alkaline Phosphatase (38-126) U/L Troponin I (0.00-0.120) ng/mL Total Protein (6.3-8.2) G/DL Albumin (3.5-5.0) g/dL Globulin (2.2-3.9) gm/dL Albumin/Globulin Ratio (1.0-2.1) Triglycerides (0-149) mg/DL Cholesterol (0-199) mg/dL LDL Cholesterol Direct (0-129) mg/dL HDL Cholesterol (30-70) MG/DL Blood Type O POSITIVE Blood Type Confirm O POSITIVE Antibody Screen Negative BBK History Checked No verified bt 05/27/17 05/27/17 05/27/17 Range/Units 18:30 18:30 17:41 WBC 6.5 (4.8-10.8) K/uL RBC 3.61 L (3.80-5.20) Mil/uL Hgb 12.1 (12.0-16.0) g/dL Hct 35.2 (34.0-47.0) % MCV 97.5 (81.0-99.0) fl MCH 33.5 H (27.0-31.0) pg MCHC 34.4 (33.0-37.0) g/dL RDW 13.6 (11.5-14.5) % Plt Count 257 (130-400) K/uL MPV 7.3 (7.2-11.7) fl Neut % (Auto) 69.9 (50.0-75.0) % Lymph % (Auto) 24.3 (20.0-40.0) % [place]ison % (Auto) 5.4 (0.0-10.0) % Eos % (Auto) 0.0 (0.0-4.0) % Baso % (Auto) 0.4 (0.0-2.0) % Neut # (Auto) 4.5 (1.8-7.0) K/uL Lymph # (Auto) 1.6 (1.0-4.3) K/uL [place]ison # (Auto) 0.3 (0.0-0.8) K/uL Eos # (Auto) 0.0 (0.0-0.7) K/uL Baso # (Auto) 0.0 (0.0-0.2) K/uL PT (9.8-13.1) Seconds INR (0.9-1.2) APTT (25.6-37.1) Seconds Sodium 133 (132-148) mmol/l Potassium 4.8 (3.6-5.0) MMOL/L Chloride 103 (98-107) mmol/L Carbon Dioxide 19 L (22-30) mmol/L Anion Gap 16 (10-20) BUN 28 H (7-17) mg/dl Creatinine 1.1 (0.7-1.2) mg/dl Est GFR ( Amer) 58 Est GFR (Non-Af Amer) 48 POC Glucose (mg/dL) 153 H (65-110) mg/dL Random Glucose 194 H (65-105) mg/dL Calcium 8.2 L (8.4-10.2) mg/dL Total Bilirubin 0.6 (0.2-1.3) mg/dl AST 36 (14-36) U/L ALT 13 (9-52) U/L Alkaline Phosphatase 75 (38-126) U/L Troponin I 0.0530 (0.00-0.120) ng/mL Total Protein 7.1 (6.3-8.2) G/DL Albumin 3.5 (3.5-5.0) g/dL Globulin 3.5 (2.2-3.9) gm/dL Albumin/Globulin Ratio 1.0 (1.0-2.1) Triglycerides 112 (0-149) mg/DL Cholesterol 165 (0-199) mg/dL LDL Cholesterol Direct 55 (0-129) mg/dL HDL Cholesterol 83 H (30-70) MG/DL Blood Type Blood Type Confirm Antibody Screen BBK History Checked Laboratory Results - last 24 hr 05/27/17 05/27/17 05/27/17 17:41 18:30 18:30 WBC 6.5 RBC 3.61 L Hgb 12.1 Hct 35.2 MCV 97.5 MCH 33.5 H MCHC 34.4 RDW 13.6 Plt Count 257 MPV 7.3 Neut % (Auto) 69.9 Lymph % (Auto) 24.3 Addison % (Auto) 5.4 Eos % (Auto) 0.0 Baso % (Auto) 0.4 Neut # (Auto) 4.5 Lymph # (Auto) 1.6 Addison # (Auto) 0.3 Eos # (Auto) 0.0 Baso # (Auto) 0.0 PT INR APTT Sodium 133 Potassium 4.8 Chloride 103 Carbon Dioxide 19 L Anion Gap 16 BUN 28 H Creatinine 1.1 Est GFR ( Amer) 58 Est GFR (Non-Af Amer) 48 POC Glucose (mg/dL) 153 H Random Glucose 194 H Calcium 8.2 L Total Bilirubin 0.6 AST 36 ALT 13 Alkaline Phosphatase 75 Troponin I 0.0530 Total Protein 7.1 Albumin 3.5 Globulin 3.5 Albumin/Globulin Ratio 1.0 Triglycerides 112 Cholesterol 165 LDL Cholesterol Direct 55 HDL Cholesterol 83 H Blood Type Blood Type Confirm Antibody Screen BBK History Checked 05/27/17 05/27/17 05/27/17 18:30 18:30 19:37 WBC RBC Hgb Hct MCV MCH MCHC RDW Plt Count MPV Neut % (Auto) Lymph % (Auto) [place]ison % (Auto) Eos % (Auto) Baso % (Auto) Neut # (Auto) Lymph # (Auto) [place]ison # (Auto) Eos # (Auto) Baso # (Auto) PT 10.0 INR 0.9 APTT 22.8 L Sodium Potassium Chloride Carbon Dioxide Anion Gap BUN Creatinine Est GFR ( Amer) Est GFR (Non-Af Amer) POC Glucose (mg/dL) Random Glucose Calcium Total Bilirubin AST ALT Alkaline Phosphatase Troponin I Total Protein Albumin Globulin Albumin/Globulin Ratio Triglycerides Cholesterol LDL Cholesterol Direct HDL Cholesterol Blood Type O POSITIVE Blood Type Confirm O POSITIVE Antibody Screen Negative BBK History Checked No verified bt 05/27/17 05/28/17 05/28/17 21:15 02:00 04:30 WBC 6.4 RBC 3.74 L Hgb 12.5 Hct 35.9 MCV 96.2 MCH 33.5 H MCHC 34.8 RDW 13.3 Plt Count 255 MPV Neut % (Auto) Lymph % (Auto) [place]ison % (Auto) Eos % (Auto) Baso % (Auto) Neut # (Auto) Lymph # (Auto) [place]ison # (Auto) Eos # (Auto) Baso # (Auto) PT INR APTT Sodium 133 Potassium 5.2 H Chloride 101 Carbon Dioxide 18 L Anion Gap 19 BUN 28 H Creatinine 1.1 Est GFR ( Amer) 58 Est GFR (Non-Af Amer) 48 POC Glucose (mg/dL) 165 H Random Glucose 161 H Calcium 8.8 Total Bilirubin AST ALT Alkaline Phosphatase Troponin I 2.4500 H* Total Protein Albumin Globulin Albumin/Globulin Ratio Triglycerides Cholesterol LDL Cholesterol Direct HDL Cholesterol Blood Type Blood Type Confirm Antibody Screen BBK History Checked 05/28/17 05/28/17 05/28/17 04:30 06:22 10:25 WBC RBC Hgb Hct MCV MCH MCHC RDW Plt Count MPV Neut % (Auto) Lymph % (Auto) Addison % (Auto) Eos % (Auto) Baso % (Auto) Neut # (Auto) Lymph # (Auto) Addison # (Auto) Eos # (Auto) Baso # (Auto) PT INR APTT Sodium Potassium Chloride Carbon Dioxide Anion Gap BUN Creatinine Est GFR ( Amer) Est GFR (Non-Af Amer) POC Glucose (mg/dL) 144 H Random Glucose Calcium Total Bilirubin AST ALT Alkaline Phosphatase Troponin I 3.1700 H* 3.5900 H* Total Protein Albumin Globulin Albumin/Globulin Ratio Triglycerides Cholesterol LDL Cholesterol Direct HDL Cholesterol Blood Type Blood Type Confirm Antibody Screen BBK History Checked Radiology Interpretations (Free Text): See Above EKG/Cardiology Interpretations (Free Text): ee Above Fingerstick Blood Sugar Results: 144 Review of Systems - Review of Systems All systems: reviewed and no additional remarkable complaints except (as above) Critical Care Progress Note - Extremities/Vascular Does the Patient have a Central Venous Catheter?: No Does the Patient need a Central Venous Catheter?: No Does the Patient have a [place] Catheter?: Yes Does the Patient need a Aguilera Catheter?: Yes Catheter Insertion Criteria: Need for accurate measurement of output in critically ill patient - Prophylaxis GI Prophylaxis GI: Pepsid - Prophylaxis DVT Prophylaxis DVT: Lovenox
--- NOTE | 2017-05-28 11:52 | CP.PCM.HP ---
<Arnulfo Cerda - Last Filed: 05/28/17 12:48> History of Present Illness - History of Present Illness History of Present Illness: 81 y/o F with PMhx of lung cancer s/p partial lung resection years ago presented to ED after she was noticed to be confused while having dinner with some friends. Patient had no other complains other than gassiness. At ED brain imagining studies showed brain lesions consistent with metastasis and she was admitted for further work up and management. Today patient is seen in not acute distress, has no complains. As per family she is more confused than Yesterday. Denies syncope, dizziness, CP, SOB< changes in urination or stools. Present on Admission - Present on Admission Any Indicators Present on Admission: No Review of Systems - Review of Systems All systems: reviewed and no additional remarkable complaints except - Gastrointestinal Gastrointestinal: Bloating - Neurological Neurological: Confusion Past Patient History - Past Medical History & Family History Past Medical History?: Yes - Past Social History Smoking Status: Never Smoked - CARDIAC Hx Cardiac Disorders: (see triage 2 note) - PULMONARY Hx Lung Cancer: Yes Other/Comment: lung lobectomy - MUSCULOSKELETAL/RHEUMATOLOGICAL Hx Falls: No - PSYCHIATRIC Hx Substance Use: No - SURGICAL HISTORY Other/Comment: unable to obtain information - ANESTHESIA Hx Anesthesia: Yes Hx Anesthesia Reactions: No Meds Allergies/Adverse Reactions: Allergies Allergy/AdvReac Type Severity Reaction Status Date / Time No Known Allergies Allergy Verified 05/27/17 17:46 Physical Exam - Constitutional Appears: Non-toxic, Confused - Head Exam Head Exam: ATRAUMATIC, NORMAL INSPECTION - Eye Exam Eye Exam: EOMI, PERRL - ENT Exam ENT Exam: Mucous Membranes Moist - Neck Exam Neck exam: Positive for: Full Rom - Respiratory Exam Respiratory Exam: Clear to Auscultation Bilateral, NORMAL BREATHING PATTERN. absent: Rales, Wheezes - Cardiovascular Exam Cardiovascular Exam: REGULAR RHYTHM, +S1, +S2. absent: Gallop - GI/Abdominal Exam GI & Abdominal Exam: Normal Bowel Sounds, Soft. absent: Guarding, Rebound, Tenderness - Extremities Exam Extremities exam: Positive for: normal capillary refill, normal inspection. Negative for: calf tenderness - Neurological Exam Neurological exam: Alert Additional comments: Slightly dysarthric. Partially oriented. Confused - Skin Skin Exam: Normal Color, Warm Results - Vital Signs Recent Vital Signs: Last Vital Signs Temp 97.5 F L 05/28/17 08:00 Pulse 79 05/28/17 10:00 Resp 19 05/28/17 10:00 BP 156/84 H 05/28/17 10:00 Pulse Ox 100 05/28/17 10:00 - Labs Result Diagrams: 05/28/17 04:30 05/28/17 02:00 Labs: Laboratory Results - last 24 hr 05/27/17 05/27/17 05/27/17 17:41 18:30 18:30 WBC 6.5 RBC 3.61 L Hgb 12.1 Hct 35.2 MCV 97.5 MCH 33.5 H MCHC 34.4 RDW 13.6 Plt Count 257 MPV 7.3 Neut % (Auto) 69.9 Lymph % (Auto) 24.3 [place] % (Auto) 5.4 Eos % (Auto) 0.0 Baso % (Auto) 0.4 Neut # (Auto) 4.5 Lymph # (Auto) 1.6 [place] # (Auto) 0.3 Eos # (Auto) 0.0 Baso # (Auto) 0.0 PT INR APTT Sodium 133 Potassium 4.8 Chloride 103 Carbon Dioxide 19 L Anion Gap 16 BUN 28 H Creatinine 1.1 Est GFR ( Amer) 58 Est GFR (Non-Af Amer) 48 POC Glucose (mg/dL) 153 H Random Glucose 194 H Calcium 8.2 L Total Bilirubin 0.6 AST 36 ALT 13 Alkaline Phosphatase 75 Troponin I 0.0530 Total Protein 7.1 Albumin 3.5 Globulin 3.5 Albumin/Globulin Ratio 1.0 Triglycerides 112 Cholesterol 165 LDL Cholesterol Direct 55 HDL Cholesterol 83 H Blood Type Blood Type Confirm Antibody Screen BBK History Checked 05/27/17 05/27/17 05/27/17 18:30 18:30 19:37 WBC RBC Hgb Hct MCV MCH MCHC RDW Plt Count MPV Neut % (Auto) Lymph % (Auto) [place] % (Auto) Eos % (Auto) Baso % (Auto) Neut # (Auto) Lymph # (Auto) [place] # (Auto) Eos # (Auto) Baso # (Auto) PT 10.0 INR 0.9 APTT 22.8 L Sodium Potassium Chloride Carbon Dioxide Anion Gap BUN Creatinine Est GFR ( Amer) Est GFR (Non-Af Amer) POC Glucose (mg/dL) Random Glucose Calcium Total Bilirubin AST ALT Alkaline Phosphatase Troponin I Total Protein Albumin Globulin Albumin/Globulin Ratio Triglycerides Cholesterol LDL Cholesterol Direct HDL Cholesterol Blood Type O POSITIVE Blood Type Confirm O POSITIVE Antibody Screen Negative BBK History Checked No verified bt 05/27/17 05/28/17 05/28/17 21:15 02:00 04:30 WBC 6.4 RBC 3.74 L Hgb 12.5 Hct 35.9 MCV 96.2 MCH 33.5 H MCHC 34.8 RDW 13.3 Plt Count 255 MPV Neut % (Auto) Lymph % (Auto) [place] % (Auto) Eos % (Auto) Baso % (Auto) Neut # (Auto) Lymph # (Auto) [place] # (Auto) Eos # (Auto) Baso # (Auto) PT INR APTT Sodium 133 Potassium 5.2 H Chloride 101 Carbon Dioxide 18 L Anion Gap 19 BUN 28 H Creatinine 1.1 Est GFR ( Amer) 58 Est GFR (Non-Af Amer) 48 POC Glucose (mg/dL) 165 H Random Glucose 161 H Calcium 8.8 Total Bilirubin AST ALT Alkaline Phosphatase Troponin I 2.4500 H* Total Protein Albumin Globulin Albumin/Globulin Ratio Triglycerides Cholesterol LDL Cholesterol Direct HDL Cholesterol Blood Type Blood Type Confirm Antibody Screen BBK History Checked 05/28/17 05/28/17 05/28/17 04:30 06:22 10:25 WBC RBC Hgb Hct MCV MCH MCHC RDW Plt Count MPV Neut % (Auto) Lymph % (Auto) [place] % (Auto) Eos % (Auto) Baso % (Auto) Neut # (Auto) Lymph # (Auto) [place] # (Auto) Eos # (Auto) Baso # (Auto) PT INR APTT Sodium Potassium Chloride Carbon Dioxide Anion Gap BUN Creatinine Est GFR ( Amer) Est GFR (Non-Af Amer) POC Glucose (mg/dL) 144 H Random Glucose Calcium Total Bilirubin AST ALT Alkaline Phosphatase Troponin I 3.1700 H* 3.5900 H* Total Protein Albumin Globulin Albumin/Globulin Ratio Triglycerides Cholesterol LDL Cholesterol Direct HDL Cholesterol Blood Type Blood Type Confirm Antibody Screen BBK History Checked Assessment & Plan - Assessment and Plan (Free Text) Assessment: 81 y/o F admitted with brain metastasis Brain Metastatic disease Confused Hx of lung ca: Likely primary CXR: R/lower lung poss neoplastic lesion Neurology consult Hem-onc consult CT abd, pelvis and chest with PO contrast Lung Ca Hx of lung lobectomy CXR report: R/lowr lung poss neoplastic lesion F/U Chest CT Elevated troponins Acute R/O Cardiac nature Asymptomatic EKG nonspecific ST changes: Pending oficial report Poss due to brain metastasis? + renal injury Cardiology consult Kidney injury Unknown if acute BUN elevated GFR impaired Repeat BMP AM F/U CT abd/pelvis <Colten Muniz - Last Filed: 05/30/17 15:15> Results - Vital Signs Recent Vital Signs: Last Vital Signs Temp 98.3 F 05/30/17 12:00 Pulse 63 05/30/17 12:00 Resp 20 05/30/17 12:00 BP 132/74 05/30/17 12:00 Pulse Ox 97 05/30/17 12:00 - Labs Result Diagrams: 05/29/17 08:29 05/29/17 04:00 Labs: Laboratory Results - last 24 hr 05/29/17 08:29 IgE 98 Assessment & Plan - Assessment and Plan (Free Text) Plan: I was present during evaluation and discussed with Dr Cerda re plans of care and mgt. Colten Muniz M.D.
[2017-05-28] MEDS ORDERED: Iohexol 240 (50 ml) ONE (12:09)
--- NOTE | 2017-05-28 15:55 | CARD ---
APPROVED REPORT EXAM: Two-dimensional and M-mode echocardiogram with Doppler and color Doppler. Other Information Quality : GoodRhythm : NSR INDICATION CVA/TIA 2D DIMENSIONS IVSd0.87 (0.7-1.1cm)LVDd5.07 (3.9-5.9cm) LVOT Diameter2.01 (1.8-2.4cm)PWd0.90 (0.7-1.1cm) IVSs1.32 (0.8-1.2cm)LVDs4.50 (2.5-4.0cm) FS (%) 11.2 %PWs1.30 (0.8-1.2cm) LVEF (%)45.0 (>50%) M-Mode DIMENSIONS Left Atrium (MM)3.50 (2.5-4.0cm)IVSd0.76 (0.7-1.1cm) Aortic Root2.47 (2.2-3.7cm)LVDd5.62 (4.0-5.6cm) Aortic Cusp Exc.1.76 (1.5-2.0cm)PWd0.79 (0.7-1.1cm) IVSs0.76 cmFS (%) 14 % LVDs4.82 (2.0-3.8cm)PWs1.18 cm Mitral Valve MV E Eudyxmls25.3cm/sMV DECEL [id number] A Yyoviely86.2cm/s MV HKN26zcV/A ratio1.1MVA (PHT)3.55cm2 TDI E/Lateral E'0.0E/Medial E'0.0 Pulmonary Valve PV Peak Qgiwiqgc12.5cm/s Tricuspid Valve TR Peak Zcpywowl175bs/sRAP [id number] Peak Gr.27mmHg [id number] LEFT VENTRICLE The left ventricle is normal size. There is mild concentric left ventricular hypertrophy. The systolic function is mildly impaired. Hypokinesis of the basal septum Transmitral Doppler flow pattern is Grade I-abnormal relaxation pattern. Cannot rule out thrombus in left Ventricle. RIGHT VENTRICLE The right ventricle is normal size. There is normal right ventricular wall thickness. The right ventricular systolic function is normal. ATRIA The left atrium size is normal. The right atrium size is normal. AORTIC VALVE The aortic valve is moderately thickened. No aortic regurgitation is present. There is no aortic valvular stenosis. MITRAL VALVE The mitral valve is moderately thickened. There is no mitral valve stenosis. Mitral regurgitation is severe. TRICUSPID VALVE The tricuspid valve is normal in structure. There is mild pulmonary hypertension. PULMONIC VALVE The pulmonary valve is normal in structure. There is no pulmonic valvular regurgitation. GREAT VESSELS The aortic root is normal in size. The IVC is dilated. PERICARDIAL EFFUSION There is a small loculated anterior pericardial effusion. <Conclusion> The left ventricle is normal size. There is mild concentric left ventricular hypertrophy. The systolic function is mildly impaired. Hypokinesis of the basal septum Transmitral Doppler flow pattern is Grade I-abnormal relaxation pattern. Cannot rule out thrombus in left Ventricle. Mitral regurgitation is severe. There is mild pulmonary hypertension.
--- NOTE | 2017-05-28 16:58 | CT ---
PROCEDURE: CT Chest, Abdomen and Pelvis without intravenous contrast HISTORY: Metastatic disease. Hx of lung cancer COMPARISON: None. TECHNIQUE: Radiation dose: Total exam DLP = 514.3 mGy-cm. This CT exam was performed using one or more of the following dose reduction techniques: Automated exposure control, adjustment of the mA and/or kV according to patient size, and/or use of iterative reconstruction technique. FINDINGS: CT CHEST WITHOUT CONTRAST: LUNGS: Peripheral right lower lobe thick walled cavitary lesion measuring 3.0 x 3.3 cm. Small adjacent ground-glass opacities are nonspecific. Tiny scattered left apical ground-glass opacities with additional scattered ground-glass nodular opacities in the lateral left upper lobe dependent atelectasis. MEDIASTINUM: Calcific atherosclerosis. Normal caliber aorta and pulmonary arterial trunk. Normal size heart. Trace pericardial effusion. LYMPH NODES: Prominent mediastinal lymph nodes that do not meet CT criteria for lymphadenopathy. PLEURA: Trace bilateral pleural effusions. No pneumothorax. BONES: Unremarkable. OTHER FINDINGS: None. CT ABDOMEN AND PELVIS: LIVER: Unremarkable. No gross lesion or ductal dilatation. GALLBLADDER AND BILE DUCTS: Vicarious excretion of intravenous contrast within the gallbladder. PANCREAS: Unremarkable. No gross lesion or ductal dilatation. SPLEEN: Unremarkable. ADRENALS: Right adrenal 2.7 x 2.6 cm adenoma. KIDNEYS AND URETERS: Faint persistent renal enhancement with excreted intravenous contrast in the bilateral collecting systems/ureters. No hydronephrosis. No solid mass. VASCULATURE: Unremarkable. No aortic aneurysm. BOWEL: Unremarkable. No obstruction. No gross mural thickening. APPENDIX: Not visualized. PERITONEUM: Unremarkable. No free fluid. No free air. LYMPH NODES: Unremarkable. No enlarged lymph nodes. BLADDER: Collapsed around a Aguilera catheter. REPRODUCTIVE: Right adnexal 2.5 x 1.9 cm cyst (series 2, image 198). Left adnexal 1.8 x 0.8 cm cyst (series 2, image 192) with coarse peripheral calcification. BONES: Degenerative changes. No acute fracture. OTHER FINDINGS: None. IMPRESSION: Peripheral right lower lobe thick walled cavitary lesion measuring approximately 3.0 cm suspicious for neoplasm. Adjacent ground-glass opacities and scattered left apical and mid lung ground-glass nodular opacities are nonspecific and may represent metastatic satellite nodules versus infectious/inflammatory in etiology. Bilateral adnexal cysts as described above. Persistent bilateral nephrograms may suggest degree of renal failure. Right adrenal adenoma. Additional findings as above.
[2017-05-28] MEDS ORDERED: Sodium Chloride 3% for Inhalation 4 ML VIAL.NEB IH PRN (17:02)
--- NOTE | 2017-05-28 19:02 | CARD ---
APPROVED REPORT EKG Measurement Heart [id number] <Conclusion> Sinus rhythm with premature atrial complexes Possible Left atrial enlargement Nonspecific ST abnormality Abnormal ECG
--- NOTE | 2017-05-28 19:15 | CARD ---
APPROVED REPORT EKG Measurement Heart [id number] [id number] <Conclusion> Normal sinus rhythm Possible Left atrial enlargement Nonspecific ST and T wave abnormality Abnormal ECG
[2017-05-29] MEDS: Dexamethasone 4 mg/1 ml IVP SCH (04:33)
[2017-05-29] MEDS: Insulin Lispro (humaLOG) 100 Units/ml Inj SC SCH ×2 (06:53→11:58)
[2017-05-29] MEDS ORDERED: Dexamethasone 6 MG in Sodium Chloride 0.9% 50 ML IV SCH (07:45)
--- NOTE | 2017-05-29 08:18 | CP.PCM.CON ---
History of Present Illness - History of Present Illness History of Present Illness: This is a 81 yrs old female who was brought to the er because of loss of conciousness. Pt had a right lung upper lobe carcinoma that was resected in 2011 at [facility]. She had no hilar node involvement or distant metastasis at the time. She was told that her tumor was completely excised and no other therapy was needed. She was not seen or followed up by a medical oncologist. Pt however did very well.She had no symptoms at all, had a healthy appetite. No shortness of breath no cough or hemoptysis. She lives alone and drives herself. On the day of admission she was out having dinner with a friend, when her speech blurred and she got a syncopal attack. She came to the ER and initially it was thought that she may have a CVA, but CT of the brain she had multiple enhancing lesions in the brain, the main ones being in the inferior temporal area on the right,area with a fair amount of edema. as well as a lesion in the lesion left frontal area.In the ER she had a seizure which was the first time she had one. No more seizures since then. P/H; She has a past h/o DM and hypercholesterolemia She has been a heavy smoker since she was 17 yrs of age and has been smoking even after her diagnosis of lung cancer. She drinks 2 glasses of wine daily. Past Patient History - Past Medical History & Family History Past Medical History?: Yes - Past Social History Smoking Status: Never Smoked - CARDIAC Hx Cardiac Disorders: (see triage 2 note) - PULMONARY Hx Lung Cancer: Yes Other/Comment: lung lobectomy - MUSCULOSKELETAL/RHEUMATOLOGICAL Hx Falls: No - PSYCHIATRIC Hx Substance Use: No - SURGICAL HISTORY Other/Comment: unable to obtain information - ANESTHESIA Hx Anesthesia: Yes Hx Anesthesia Reactions: No Meds Allergies/Adverse Reactions: Allergies Allergy/AdvReac Type Severity Reaction Status Date / Time No Known Allergies Allergy Verified 05/27/17 17:46 - Medications Medications: Current Medications Acetaminophen (Tylenol 325mg Tab) 650 mg PO Q6 PRN PRN Reason: Fever >100.4 F Acetaminophen (Tylenol 325mg Tab) 650 mg PO Q6H PRN PRN Reason: Pain, Mild (1-3), headache Aspirin (Aspirin) 325 mg PO DAILY [facility] Last Admin: 05/28/17 09:12 Dose: 325 mg Atorvastatin Calcium (Lipitor) 40 mg PO DAILY [facility] Last Admin: 05/28/17 09:12 Dose: 40 mg Dexamethasone (Decadron Inj) 6 mg IV Q6H [facility] Enoxaparin Sodium (Lovenox) 30 mg SC DAILY [facility] PRN Reason: Protocol Insulin Human Lispro (Humalog) 0 units SC ACHS [facility] PRN Reason: Protocol Last Admin: 05/29/17 06:53 Dose: Not Given Labetalol HCl (Trandate) 10 mg IVP Q6H PRN PRN Reason: SBP > 180 Metoprolol Tartrate (Lopressor) 25 mg PO Q12 [facility] Last Admin: 05/28/17 21:15 Dose: Not Given Pantoprazole Sodium (Protonix Ec Tab) 40 mg PO DAILY [facility] Last Admin: 05/28/17 09:12 Dose: 40 mg Temazepam (Restoril) 15 mg PO HS PRN PRN Reason: Insomnia Last Admin: 05/28/17 21:00 Dose: 15 mg Physical Exam - Additional Findings Additional findings: Physical exam; Slightly confused, unable to give an opinion re treatment. Neck; Supple , no adenopathy chest; air entry decreased on the right,no rales ,no rhonchi Heart; RSR, no murmur Abd; Soft, no mass, no h/s megaly Neurological exam; No residual weak, but pt is too confused to do a full neuro examness Results - Vital Signs Recent Vital Signs: Last Vital Signs Temp 98.4 F 05/29/17 06:00 Pulse 77 05/29/17 06:00 Resp 19 05/29/17 06:00 BP 159/87 H 05/29/17 06:00 Pulse Ox 100 05/28/17 17:55 - Labs Result Diagrams: 05/28/17 04:30 05/28/17 02:00 Labs: Laboratory Results - last 24 hr 05/27/17 05/27/17 05/28/17 17:41 18:57 10:25 POC Glucose (mg/dL) 153 H Hemoglobin A1c 4.8 Troponin I 3.5900 H* 05/28/17 05/28/17 05/28/17 12:14 16:58 21:45 POC Glucose (mg/dL) 126 H 125 H 193 H Hemoglobin A1c Troponin I 05/29/17 06:00 POC Glucose (mg/dL) 142 H Hemoglobin A1c Troponin I Assessment & Plan - Assessment and Plan (Free Text) Assessment: Impression; Recurrent lung cancer with brain metastasis. Plan: Plan; Will increase the dose of the decadron to 6 mg q6hrs.. Once the brain edema is better, radiation and chemotherapy or not.she should be better able to make decisions re whether she wants - Date & Time Date: 05/29/17 Time: 09:02
[2017-05-29] MEDS: Enoxaparin 30 mg Syringe SC SCH (08:35)
[2017-05-29] MEDS: Pantoprazole 40 mg EC Tab PO SCH (08:40)
[2017-05-29 09:09] LABS: BASO % 0.1 % (0.0-2.0); HEMOGLOBIN 11.7 g/dL (12.0-16.0); LYMPH # 0.4 K/uL (1.0-4.3); LYMPH % 4.4 % (20.0-40.0); MEAN CELL VOLUME 94.9 fl (81.0-99.0); MEAN CORPUSCULAR HEMOGLOBIN 33.4 pg (27.0-31.0); MEAN CORPUSCULAR HGB CONC 35.2 g/dL (33.0-37.0); MEAN PLATELET VOLUME 8.1 fl (7.2-11.7); MONO # 0.4 K/uL (0.0-0.8); MONO % 4.3 % (0.0-10.0); NEUT # 8.5 K/uL (1.8-7.0); NEUT % 91.2 % (50.0-75.0); NRBC % 0.1 % (0.0-0.0); PLATELET COUNT 227 K/uL (130-400); RBC 3.49 Mil/uL (3.80-5.20); RED CELL DISTRIBUTION WIDTH 13.1 % (11.5-14.5); WHITE BLOOD COUNT 9.4 K/uL (4.8-10.8)
[2017-05-29 09:34] LABS: BANDS 1 % (0-2); LYMPHOCYTE 3 % (20-50); MONOCYTE 6 % (0-10); NEUTROPHIL 90 % (42-75); PLATELET ESTIMATE NORMAL (NORMAL); TOTAL CELLS COUNTED 100
[2017-05-29 09:35] LABS: ANISOCYTOSIS SLIGHT; POIKILOCYTOSIS SLIGHT
--- NOTE | 2017-05-29 09:47 | CP.PCM.CON ---
History of Present Illness - History of Present Illness History of Present Illness: This 81-year-old female a hypertensive and a diabetic well been taking a statin for dyslipidemia was brought to the emergency room after a near syncopal episode with severe dysarthria while dining at a restaurant and had abnormal movement suggestive of a seizure and hospitalized. She has a long history of heavy cigarette use and had undergone cardiac evaluation prior to lung surgery in 2011 for lung malignancy. Subsequently the patient had done well and there was no cardiac issue suggest chest pain or prior history of myocardial infarction or symptoms of congestive cardiac failure. The patient is able to Climb couple of flights of stairs at home on multiple occasions with little difficulty. After hospitalization she is found to have multiple lesions in the brain and the suspicion of possible metastatic lesions is being entertained. Physical examination shows a thin built elderly female who is alert and awake and coherent. She is afebrile and bleeds at 16 breaths per minute and can carry on a conversation. Her heart rate was 76 bpm regular and a blood pressure was 130/74 mmHg. Her jugular venous pressure was not elevated and there was no edema or lower extremity. The pedal pulses were extremely feeble but distinct present. There were no carotid bruits. The patient is mildly kyphotic. The apex was not palpable. The first and second heart sounds were normal with a long apical systolic murmur of mitral regurgitation. There was no S3 gallop and there were no rales. The expiration is slightly prolonged. Abdomen was soft liver and spleen are not palpable. Her electro-cardiogram at admission and one done this morning shows sinus rhythm with no Q waves and nonspecific ST-T changes. An echocardiogram done yesterday shows a generalized mild hypokinesia with a depressed left ventricular systolic function and evidence of moderate to severe mitral regurgitation. Her lab data shows a normal troponin at admission followed by elevated troponin levels on 3 constitutive occasions taken 8 hours apart. Her BUN/creatinine were normal. Impression: History of lung malignancy with possible brain metastatic lesions. Elevated troponin levels possibly due to seizure. Doubt acute myocardial infarction. Abnormal findings on echocardiogram most likely represent chronic abnormalities (this degree of mitral regurgitation occurring acutely will have a quite different clinical presentation) the patient is stable from cardiovascular point of view at this juncture and no intervention is recommended right now. Past Patient History - Past Medical History & Family History Past Medical History?: Yes - Past Social History Smoking Status: Never Smoked - CARDIAC Hx Cardiac Disorders: (see triage 2 note) - PULMONARY Hx Lung Cancer: Yes Other/Comment: lung lobectomy - MUSCULOSKELETAL/RHEUMATOLOGICAL Hx Falls: No - PSYCHIATRIC Hx Substance Use: No - SURGICAL HISTORY Other/Comment: unable to obtain information - ANESTHESIA Hx Anesthesia: Yes Hx Anesthesia Reactions: No Meds Allergies/Adverse Reactions: Allergies Allergy/AdvReac Type Severity Reaction Status Date / Time No Known Allergies Allergy Verified 05/27/17 17:46 - Medications Medications: Current Medications Acetaminophen (Tylenol 325mg Tab) 650 mg PO Q6 PRN PRN Reason: Fever >100.4 F Acetaminophen (Tylenol 325mg Tab) 650 mg PO Q6H PRN PRN Reason: Pain, Mild (1-3), headache Aspirin (Aspirin) 325 mg PO DAILY [facility] Last Admin: 05/29/17 08:33 Dose: 325 mg Atorvastatin Calcium (Lipitor) 40 mg PO DAILY [facility] Last Admin: 05/29/17 08:33 Dose: 40 mg Dexamethasone (Decadron Inj) 6 mg IV Q6H [facility] Enoxaparin Sodium (Lovenox) 30 mg SC DAILY [facility] PRN Reason: Protocol Last Admin: 05/29/17 08:35 Dose: 30 mg Insulin Human Lispro (Humalog) 0 units SC ACHS [facility] PRN Reason: Protocol Last Admin: 05/29/17 06:53 Dose: Not Given Labetalol HCl (Trandate) 10 mg IVP Q6H PRN PRN Reason: SBP > 180 Metoprolol Tartrate (Lopressor) 25 mg PO Q12 [facility] Last Admin: 05/29/17 08:33 Dose: 25 mg Pantoprazole Sodium (Protonix Ec Tab) 40 mg PO DAILY [facility] Last Admin: 05/29/17 08:40 Dose: 40 mg Temazepam (Restoril) 15 mg PO HS PRN PRN Reason: Insomnia Last Admin: 05/28/17 21:00 Dose: 15 mg Results - Vital Signs Recent Vital Signs: Last Vital Signs Temp 98.9 F 05/29/17 08:00 Pulse 79 05/29/17 08:33 Resp 18 05/29/17 08:00 BP 148/93 H 05/29/17 08:33 Pulse Ox 100 05/29/17 08:00 - Labs Result Diagrams: 05/29/17 08:29 05/28/17 02:00 Labs: Laboratory Results - last 24 hr 05/27/17 05/27/17 05/28/17 17:41 18:57 10:25 WBC RBC Hgb Hct MCV MCH MCHC RDW Plt Count MPV Neut % (Auto) Lymph % (Auto) [place] % (Auto) Eos % (Auto) Baso % (Auto) Neut # (Auto) Lymph # (Auto) [place] # (Auto) Eos # (Auto) Baso # (Auto) Neutrophils % (Manual) Band Neutrophils % Lymphocytes % (Manual) Monocytes % (Manual) Platelet Estimate Poikilocytosis (manual Anisocytosis (manual) POC Glucose (mg/dL) 153 H Hemoglobin A1c 4.8 Troponin I 3.5900 H* 05/28/17 05/28/17 05/28/17 12:14 16:58 21:45 WBC RBC Hgb Hct MCV MCH MCHC RDW Plt Count MPV Neut % (Auto) Lymph % (Auto) [place] % (Auto) Eos % (Auto) Baso % (Auto) Neut # (Auto) Lymph # (Auto) [place] # (Auto) Eos # (Auto) Baso # (Auto) Neutrophils % (Manual) Band Neutrophils % Lymphocytes % (Manual) Monocytes % (Manual) Platelet Estimate Poikilocytosis (manual Anisocytosis (manual) POC Glucose (mg/dL) 126 H 125 H 193 H Hemoglobin A1c Troponin I 05/29/17 05/29/17 05/29/17 06:00 08:29 08:29 WBC 9.4 RBC 3.49 L Hgb 11.7 L Hct 33.1 L MCV 94.9 MCH 33.4 H MCHC 35.2 RDW 13.1 Plt Count 227 MPV 8.1 Neut % (Auto) 91.2 H Lymph % (Auto) 4.4 L [place] % (Auto) 4.3 Eos % (Auto) 0.0 Baso % (Auto) 0.1 Neut # (Auto) 8.5 H Lymph # (Auto) 0.4 L [place] # (Auto) 0.4 Eos # (Auto) 0.0 Baso # (Auto) 0.0 Neutrophils % (Manual) 90 H Band Neutrophils % 1 Lymphocytes % (Manual) 3 L Monocytes % (Manual) 6 Platelet Estimate Normal Poikilocytosis (manual Slight Anisocytosis (manual) Slight POC Glucose (mg/dL) 142 H Hemoglobin A1c Troponin I 2.5100 H*
--- NOTE | 2017-05-29 10:49 | CP.PCM.DIS ---
Provider - Provider Date of Admission: 05/27/17 19:36 Attending physician: Colten Muniz MD Time Spent in preparation of Discharge (in minutes): 45 Hospital Course - Lab Results Lab Results: Most Recent Lab Values WBC 9.4 K/uL (4.8-10.8) 05/29/17 08: RBC 3.49 Mil/uL (3.80-5.20) L 05/29/17 08: Hgb 11.7 g/dL (12.0-16.0) L 05/29/17 08: Hct 33.1 % (34.0-47.0) L 05/29/17 08: MCV 94.9 fl (81.0-99.0) 05/29/17 08: MCH 33.4 pg (27.0-31.0) H 05/29/17 08: MCHC 35.2 g/dL (33.0-37.0) 05/29/17 08: RDW 13.1 % (11.5-14.5) 05/29/17: Plt Count 227 K/uL (130-400) 05/29/17 08: MPV 8.1 fl (7.2-11.7) 05/29/17 08: Neut % (Auto) 91.2 % (50.0-75.0) H 05/29/17 08: Lymph % (Auto) 4.4 % (20.0-40.0) L 05/29/17 08: [place] % (Auto) 4.3 % (0.0-10.0) 05/29/17 08: Eos % (Auto) 0.0 % (0.0-4.0) 05/29/17 08: Baso % (Auto) 0.1 % (0.0-2.0) 05/29/17: Neut # (Auto) 8.5 K/uL (1.8-7.0) H 05/29/17 08: Lymph # (Auto) 0.4 K/uL (1.0-4.3) L 05/29/17 08: [place] # (Auto) 0.4 K/uL (0.0-0.8) 05/29/17 08:29 Eos # (Auto) 0.0 K/uL (0.0-0.7) 05/29/17 08:29 Baso # (Auto) 0.0 K/uL (0.0-0.2) 05/29/17 08:29 Neutrophils % (Manual) 90 % (42-75) H 05/29/17 08:29 Band Neutrophils % 1 % (0-2) 05/29/17 08:29 Lymphocytes % (Manual) 3 % (20-50) L 05/29/17 08:29 Monocytes % (Manual) 6 % (0-10) 05/29/17 08:29 Platelet Estimate Normal (NORMAL) 05/29/17 08:29 Poikilocytosis (manual Slight 05/29/17 08:29 Anisocytosis (manual) Slight 05/29/17 08:29 PT 10.0 Seconds (9.8-13.1) 05/27/17 18:30 INR 0.9 (0.9-1.2) 05/27/17 18:30 APTT 22.8 Seconds (25.6-37.1) L 05/27/17 18:30 Sodium 133 mmol/l (132-148) 05/28/17 02:00 Potassium 5.2 MMOL/L (3.6-5.0) H 05/28/17 02:00 Chloride 101 mmol/L (98-107) 05/28/17 02:00 Carbon Dioxide 18 mmol/L (22-30) L 05/28/17 02:00 Anion Gap 19 (10-20) 05/28/17 02:00 BUN 28 mg/dl (7-17) H 05/28/17 02:00 Creatinine 1.1 mg/dl (0.7-1.2) 05/28/17 02:00 Est GFR ( Amer) 58 05/28/17 02:00 Est GFR (Non-Af Amer) 48 05/28/17 02:00 POC Glucose (mg/dL) 142 mg/dL (65-110) H 05/29/17 06:00 Random Glucose 161 mg/dL (65-105) H 05/28/17 02:00 Hemoglobin A1c 4.8 % (4.2-6.5) 05/27/17 18:57 Calcium 8.8 mg/dL (8.4-10.2) 05/28/17 02:00 Total Bilirubin 0.6 mg/dl (0.2-1.3) 05/27/17 18:30 AST 36 U/L (14-36) 05/27/17 18:30 ALT 13 U/L (9-52) 05/27/17 18:30 Alkaline Phosphatase 75 U/L (38-126) 05/27/17 18:30 Troponin I 2.5100 ng/mL (0.00-0.120) H* 05/29/17 08:29 Total Protein 7.1 G/DL (6.3-8.2) 05/27/17 18:30 Albumin 3.5 g/dL (3.5-5.0) 05/27/17 18:30 Globulin 3.5 gm/dL (2.2-3.9) 05/27/17 18:30 Albumin/Globulin Ratio 1.0 (1.0-2.1) 05/27/17 18:30 Triglycerides 112 mg/DL (0-149) 05/27/17 18: Cholesterol 165 mg/dL (0-199) 05/27/17 18:30 LDL Cholesterol Direct 55 mg/dL (0-129) 05/27/17 18:30 HDL Cholesterol 83 MG/DL (30-70) H 05/27/17 18:30 Blood Type O POSITIVE 05/27/17 18:30 Blood Type Confirm O POSITIVE 05/27/17 19:37 Antibody Screen Negative 05/27/17 18:30 BBK History Checked No verified bt 05/27/17 18:30 - Hospital Course Hospital Course: This is a 81 y/o female who presented with acute confusional state. She was noted to have possible metastatic lesions in the brain. Further exams showed severe MR on ECHO, elevated troponin and a possible cavitary lesion? or mass on the right lower lobe lung. She has a significant hx of smoking and had lobectomy about 5 years ago for lung cancer. Neurosurgical eval and oncology and cardiology consults were made. She was started on Decadron , lipitor and metoprolol. She was stabilized and was discharged to home and advised to follow up with a neurosurgical group based in [facility]. All records, tests and discs were given to family. The whole clinical scenario and other possible diagnoses were discussed with family prior to discharge. She was discharged in stable condition. Rx for Decadron, Protonix , Haldol, Lipitor and metoprolol were given. Discharge Exam - Head Exam Head Exam: ATRAUMATIC, NORMAL INSPECTION - Eye Exam Eye Exam: Normal appearance - Respiratory Exam Respiratory Exam: NORMAL BREATHING PATTERN - Cardiovascular Exam Cardiovascular Exam: REGULAR RHYTHM - GI/Abdominal Exam GI & Abdominal Exam: Normal Bowel Sounds - Neurological Exam Neurological exam: CN II-XII Intact, Oriented x3 Discharge Plan - Follow Up Plan Condition: FAIR Disposition: HOME/ ROUTINE Additional Instructions: Instructed to follow up with [facility].
[2017-05-29 11:23] LABS: ALB/GLOB RATIO 1.1 (1.0-2.1); CALCIUM 9.1 mg/dL (8.4-10.2)
--- NOTE | 2017-05-29 15:08 | CP.PCM.PCO ---
Addendum Addendum: 05/29/17 15:06 Nurse called to inform patient's family refused to DC patient after calling NeuroSx service at [facility] and they were unable to eval patient until Thursday. Family feel unable to take care of patient at this time at home due to patient's mental status. Dr Muniz aware
--- NOTE | 2017-05-29 22:53 | CARD ---
APPROVED REPORT EKG Measurement Heart [id number] AL [id number] <Conclusion> Normal sinus rhythm Possible Left atrial enlargement Prolonged QT Abnormal ECG
--- NOTE | 2017-05-29 23:43 | CARD ---
APPROVED REPORT EKG Measurement Heart [id number] <Conclusion> Normal sinus rhythm Possible Left atrial enlargement Left ventricular hypertrophy Abnormal ECG
[2017-05-30] MEDS: Pantoprazole 40 mg EC Tab PO SCH (08:29)
[2017-05-30] MEDS: Enoxaparin 30 mg Syringe SC SCH (08:30)
--- NOTE | 2017-05-30 09:43 | CP.PCM.PN ---
Subjective - Date & Time of Evaluation Date of Evaluation: 04/29/17 Time of Evaluation: 09:30 - Subjective Subjective: Patient has no headache, no confusion, no seizures. Neuro exam: only significant for some word finding difficulties,and right sided drift. Objective - Vital Signs/Intake and Output Vital Signs (last 24 hours): Temp Pulse Resp BP Pulse Ox 98.3 F 79 20 166/77 H 95 05/30/17 08:00 05/30/17 08:30 05/30/17 08:00 05/30/17 08:30 05/30/17 08:00 - Medications Medications: Current Medications Acetaminophen (Tylenol 325mg Tab) 650 mg PO Q6 PRN PRN Reason: Fever >100.4 F Last Admin: 05/29/17 16:37 Dose: 650 mg Acetaminophen (Tylenol 325mg Tab) 650 mg PO Q6H PRN PRN Reason: Pain, Mild (1-3), headache Last Admin: 05/30/17 00:12 Dose: 650 mg Aspirin (Aspirin) 325 mg PO DAILY [facility] Last Admin: 05/30/17 08:29 Dose: 325 mg Atorvastatin Calcium (Lipitor) 40 mg PO DAILY [facility] Last Admin: 05/30/17 08:29 Dose: 40 mg Dexamethasone (Decadron Inj) 6 mg IV Q6H [facility] Last Admin: 05/30/17 08:29 Dose: 6 mg Enoxaparin Sodium (Lovenox) 30 mg SC DAILY [facility] PRN Reason: Protocol Last Admin: 05/30/17 08:30 Dose: 30 mg Haloperidol Lactate (Haldol) 2 mg IVP Q6 PRN PRN Reason: Agitation Last Admin: 05/30/17 04:16 Dose: 2 mg Labetalol HCl (Trandate) 10 mg IVP Q6H PRN PRN Reason: SBP > 180 Metoprolol Tartrate (Lopressor) 25 mg PO Q12 [facility] Last Admin: 05/30/17 08:30 Dose: 25 mg Nicotine (Nicoderm Cq) 1 patch TD DAILY [facility] Last Admin: 05/30/17 08:31 Dose: 1 patch Pantoprazole Sodium (Protonix Ec Tab) 40 mg PO DAILY [facility] Last Admin: 05/30/17 08:29 Dose: 40 mg Temazepam (Restoril) 15 mg PO HS PRN PRN Reason: Insomnia Last Admin: 05/30/17 00:11 Dose: 15 mg - Labs Labs: 05/29/17 08:29 05/29/17 04:00 PT 10.0 Seconds (9.8-13.1) 05/27/17 18:30 INR 0.9 (0.9-1.2) 05/27/17 18:30 APTT 22.8 Seconds (25.6-37.1) L 05/27/17 18:30 Assessment and Plan - Assessment and Plan (Free Text) Assessment: 81 yr old woman with bicortical mets, 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 plan: 1. Physical and speech therapy 2. Decrease decadron to 2mg iv q 12 hours. 3. Will speak to oncology re: primary lesion? 4. Continue antiepileptics 5. Disposition; rehab and then home with neurology follow up
--- NOTE | 2017-05-30 12:32 | CP.PCM.PN ---
Subjective - Date & Time of Evaluation Date of Evaluation: 05/30/17 Time of Evaluation: 12:22 - Subjective Subjective: Pt is a little more awake for a longer time, She is still somewhat confused, but family informs me that last evening she almost got psychosis. They have been in touch with a neurusurgeon in [facility] ([facility]) and he has given the patient an appointment to see him as an out patient on thursday. All the further investigations lung biopsies etc were to be done as outpatient by the cancer center at [facility]. It was decided by her primary physician to discharge her home and let her have te tests. The family does not want the pt to go home because she is not mentally stable at night. They want pt to be here until thursday when they can take her to the neurosurgeon. since pt is going to be here ,I feel we should do a biopsy of the lung on thursday , so the biopsy result will be ready 3when they go to [place]. The dose of the decadron is being reduced to 6mg TID Objective - Vital Signs/Intake and Output Vital Signs (last 24 hours): Temp Pulse Resp BP Pulse Ox 98.3 F 79 20 166/77 H 95 05/30/17 08:00 05/30/17 08:30 05/30/17 08:00 05/30/17 08:30 05/30/17 08:00 - Medications Medications: Current Medications Acetaminophen (Tylenol 325mg Tab) 650 mg PO Q6 PRN PRN Reason: Fever >100.4 F Last Admin: 05/29/17 16:37 Dose: 650 mg Acetaminophen (Tylenol 325mg Tab) 650 mg PO Q6H PRN PRN Reason: Pain, Mild (1-3), headache Last Admin: 05/30/17 00:12 Dose: 650 mg Aspirin (Aspirin) 325 mg PO DAILY [facility] Last Admin: 05/30/17 08:29 Dose: 325 mg Atorvastatin Calcium (Lipitor) 40 mg PO DAILY [facility] Last Admin: 05/30/17 08:29 Dose: 40 mg Dexamethasone (Decadron) 2 mg PO Q12 [facility] Enoxaparin Sodium (Lovenox) 30 mg SC DAILY [facility] PRN Reason: Protocol Last Admin: 05/30/17 08:30 Dose: 30 mg Haloperidol Lactate (Haldol) 2 mg IVP Q6 PRN PRN Reason: Agitation Last Admin: 05/30/17 04:16 Dose: 2 mg Labetalol HCl (Trandate) 10 mg IVP Q6H PRN PRN Reason: SBP > 180 Metoprolol Tartrate (Lopressor) 25 mg PO Q12 [facility] Last Admin: 05/30/17 08:30 Dose: 25 mg Nicotine (Nicoderm Cq) 1 patch TD DAILY [facility] Last Admin: 05/30/17 08:31 Dose: 1 patch Pantoprazole Sodium (Protonix Ec Tab) 40 mg PO DAILY [facility] Last Admin: 05/30/17 08:29 Dose: 40 mg Temazepam (Restoril) 15 mg PO HS PRN PRN Reason: Insomnia Last Admin: 05/30/17 00:11 Dose: 15 mg - Labs Labs: 05/29/17 08:29 05/29/17 04:00 PT 10.0 Seconds (9.8-13.1) 05/27/17 18:30 INR 0.9 (0.9-1.2) 05/27/17 18:30 APTT 22.8 Seconds (25.6-37.1) L 05/27/17 18:30
--- NOTE | 2017-05-30 15:21 | CP.PCM.PN ---
Subjective - Date & Time of Evaluation Date of Evaluation: 05/30/17 Time of Evaluation: 15:16 - Subjective Subjective: Patient was kept in the hospital due to increasing agitation and disorientation. Sh ehas no headaches Has no fever. She has episodic confusion. Noted to have responded to both restoril and haldol together, Noted to have increased confusion n the late afternoon. Objective - Vital Signs/Intake and Output Vital Signs (last 24 hours): Temp Pulse Resp BP Pulse Ox 98.3 F 63 20 132/74 97 05/30/17 12:00 05/30/17 12:00 05/30/17 12:00 05/30/17 12:00 05/30/17 12:00 - Medications Medications: Current Medications Acetaminophen (Tylenol 325mg Tab) 650 mg PO Q6 PRN PRN Reason: Fever >100.4 F Last Admin: 05/29/17 16:37 Dose: 650 mg Acetaminophen (Tylenol 325mg Tab) 650 mg PO Q6H PRN PRN Reason: Pain, Mild (1-3), headache Last Admin: 05/30/17 00:12 Dose: 650 mg Aspirin (Aspirin) 325 mg PO DAILY [facility] Last Admin: 05/30/17 08:29 Dose: 325 mg Atorvastatin Calcium (Lipitor) 40 mg PO DAILY [facility] Last Admin: 05/30/17 08:29 Dose: 40 mg Dexamethasone (Decadron) 2 mg PO Q12 [facility] Enoxaparin Sodium (Lovenox) 30 mg SC DAILY [facility] PRN Reason: Protocol Last Admin: 05/30/17 08:30 Dose: 30 mg Haloperidol Lactate (Haldol) 2 mg IVP Q6 PRN PRN Reason: Agitation Last Admin: 05/30/17 04:16 Dose: 2 mg Labetalol HCl (Trandate) 10 mg IVP Q6H PRN PRN Reason: SBP > 180 Metoprolol Tartrate (Lopressor) 25 mg PO Q12 [facility] Last Admin: 05/30/17 08:30 Dose: 25 mg Nicotine (Nicoderm Cq) 1 patch TD DAILY [facility] Last Admin: 05/30/17 08:31 Dose: 1 patch Pantoprazole Sodium (Protonix Ec Tab) 40 mg PO DAILY [facility] Last Admin: 05/30/17 08:29 Dose: 40 mg Temazepam (Restoril) 15 mg PO HS PRN PRN Reason: Insomnia Last Admin: 05/30/17 00:11 Dose: 15 mg - Labs Labs: 05/29/17 08:29 05/29/17 04:00 PT 10.0 Seconds (9.8-13.1) 05/27/17 18:30 INR 0.9 (0.9-1.2) 05/27/17 18:30 APTT 22.8 Seconds (25.6-37.1) L 05/27/17 18:30 - Head Exam Head Exam: NORMAL INSPECTION - Eye Exam Eye Exam: Normal appearance - ENT Exam ENT Exam: Mucous Membranes Moist - GI/Abdominal Exam GI & Abdominal Exam: Normal Bowel Sounds - Neurological Exam Neurological Exam: Altered - Psychiatric Exam Psychiatric exam: Anxious Assessment and Plan (1) Brain tumor Status: Acute (2) Lung mass Status: Acute (3) Delirium due to general medical condition Status: Acute - Assessment and Plan (Free Text) Plan: start ativan in the afternoon restoril and haldol at night discussed with granddaughter and daughter yesterday re different approaches for treatment. will maintain decadron discussed with Dr Luciano Ferrell re lung biopsy Thursday
--- NOTE | 2017-05-31 08:16 | CP.PCM.PN ---
<Shayy Jimenez - Last Filed: 05/31/17 08:18> Subjective - Date & Time of Evaluation Date of Evaluation: 05/31/17 Time of Evaluation: 08:10 - Subjective Subjective: Ms. Booth is seen and examined at the bedside. She is alert, with episode of confusion but easily re-directed. She denies any headache, blurred vision, nausea, or vomiting. She is able to ambulate to and from the bathroom with assistance. According to the family, patient had an episode of crying speel early this morning. dexamathasone dose was decrease since yesterday. There was no untoward events overnight. Objective - Vital Signs/Intake and Output Vital Signs (last 24 hours): Temp Pulse Resp BP Pulse Ox 97.6 F 60 18 146/80 97 05/30/17 22:55 05/30/17 22:55 05/30/17 22:55 05/30/17 22:55 05/30/17 22:55 - Medications Medications: Current Medications Acetaminophen (Tylenol 325mg Tab) 650 mg PO Q6 PRN PRN Reason: Fever >100.4 F Last Admin: 05/29/17 16:37 Dose: 650 mg Acetaminophen (Tylenol 325mg Tab) 650 mg PO Q6H PRN PRN Reason: Pain, Mild (1-3), headache Last Admin: 05/30/17 00:12 Dose: 650 mg Aspirin (Aspirin) 325 mg PO DAILY [facility] Last Admin: 05/30/17 08:29 Dose: 325 mg Atorvastatin Calcium (Lipitor) 40 mg PO DAILY [facility] Last Admin: 05/30/17 08:29 Dose: 40 mg Dexamethasone (Decadron) 2 mg PO Q12 [facility] Last Admin: 05/30/17 22:46 Dose: 2 mg Enoxaparin Sodium (Lovenox) 30 mg SC DAILY [facility] PRN Reason: Protocol Last Admin: 05/30/17 08:30 Dose: 30 mg Haloperidol Lactate (Haldol) 2 mg IVP Q6 PRN PRN Reason: Agitation Last Admin: 05/30/17 04:16 Dose: 2 mg Labetalol HCl (Trandate) 10 mg IVP Q6H PRN PRN Reason: SBP > 180 Metoprolol Tartrate (Lopressor) 25 mg PO Q12 [facility] Last Admin: 05/30/17 22:53 Dose: Not Given Nicotine (Nicoderm Cq) 1 patch TD DAILY [facility] Last Admin: 05/30/17 08:31 Dose: 1 patch Pantoprazole Sodium (Protonix Ec Tab) 40 mg PO DAILY [facility] Last Admin: 05/30/17 08:29 Dose: 40 mg Temazepam (Restoril) 15 mg PO HS PRN PRN Reason: Insomnia Last Admin: 05/30/17 00:11 Dose: 15 mg Temazepam (Restoril) 15 mg PO HS [facility] Last Admin: 05/30/17 22:10 Dose: Not Given - Labs Labs: 05/29/17 08:29 05/29/17 04:00 PT 10.0 Seconds (9.8-13.1) 05/27/17 18:30 INR 0.9 (0.9-1.2) 05/27/17 18:30 APTT 22.8 Seconds (25.6-37.1) L 05/27/17 18:30 - Constitutional Appears: No Acute Distress - Head Exam Head Exam: NORMAL INSPECTION - Neurological Exam Neurological Exam: Alert, Awake Neuro motor strength exam: Left Upper Extremity: 4, Right Upper Extremity: 4, Left Lower Extremity: 4, Right Lower Extremity: 4 Additional comments: She is able to answer few questions and follow simple commands. Assessment and Plan (1) Intracranial mass Assessment & Plan: Case discussed with Dr. Stokes, continue all current medical, physical, and occupational therapies. Recommend to see a neurooncologist for her brain lesion. Status: Acute <Michael Stokes - Last Filed: 05/31/17 10:40> Objective - Vital Signs/Intake and Output Vital Signs (last 24 hours): Temp Pulse Resp BP Pulse Ox 97.3 F L 70 18 189/82 H 100 05/31/17 08:29 05/31/17 09:01 05/31/17 08:29 05/31/17 09:01 05/31/17 08:29 - Medications Medications: Current Medications Acetaminophen (Tylenol 325mg Tab) 650 mg PO Q6 PRN PRN Reason: Fever >100.4 F Last Admin: 05/29/17 16:37 Dose: 650 mg Acetaminophen (Tylenol 325mg Tab) 650 mg PO Q6H PRN PRN Reason: Pain, Mild (1-3), headache Last Admin: 05/30/17 00:12 Dose: 650 mg Aspirin (Aspirin) 325 mg PO DAILY [facility] Last Admin: 05/31/17 08:42 Dose: Not Given Atorvastatin Calcium (Lipitor) 40 mg PO DAILY [facility] Last Admin: 05/31/17 09:01 Dose: 40 mg Dexamethasone (Decadron) 2 mg PO Q12 [facility] Last Admin: 05/31/17 09:01 Dose: 2 mg Enoxaparin Sodium (Lovenox) 30 mg SC DAILY [facility] PRN Reason: Protocol Last Admin: 05/31/17 09:04 Dose: 30 mg Haloperidol Lactate (Haldol) 2 mg IVP Q6 PRN PRN Reason: Agitation Last Admin: 05/30/17 04:16 Dose: 2 mg Labetalol HCl (Trandate) 10 mg IVP Q6H PRN PRN Reason: SBP > 180 Metoprolol Tartrate (Lopressor) 25 mg PO Q12 [facility] Last Admin: 05/31/17 09:01 Dose: 25 mg Nicotine (Nicoderm Cq) 1 patch TD DAILY [facility] Last Admin: 05/31/17 09:02 Dose: 1 patch Pantoprazole Sodium (Protonix Ec Tab) 40 mg PO DAILY [facility] Last Admin: 05/31/17 09:04 Dose: 40 mg Temazepam (Restoril) 15 mg PO HS PRN PRN Reason: Insomnia Last Admin: 05/30/17 00:11 Dose: 15 mg Temazepam (Restoril) 15 mg PO HS [facility] Last Admin: 05/30/17 22:10 Dose: Not Given - Labs Labs: 05/29/17 08:29 05/29/17 04:00 PT 10.0 Seconds (9.8-13.1) 05/27/17 18:30 INR 0.9 (0.9-1.2) 05/27/17 18:30 APTT 22.8 Seconds (25.6-37.1) L 05/27/17 18:30 Assessment and Plan - Assessment and Plan (Free Text) Plan: Please decrease the decadron further to 1mg po daily. EEG in am. Primary lesion as of yet not identified: ?pleural biopsy
[2017-05-31] MEDS: Enoxaparin 30 mg Syringe SC SCH (09:04)
[2017-05-31] MEDS: Pantoprazole 40 mg EC Tab PO SCH (09:04)
--- NOTE | 2017-05-31 12:38 | CP.PCM.PN ---
Subjective - Date & Time of Evaluation Date of Evaluation: 05/31/17 Time of Evaluation: 12:37 - Subjective Subjective: Patient remains stable Has no seizures Still with episodes of confusion. I had a discussion with daughter and reiterated to her [facility] plan of care and management. I had discussed the case with another MD from [place] but he thought that based on the present mgt and treatment given that theres no reason for transfer to [place] at this point. I advised daughter that we micky proceed with lung biopsy tomorrow and patient will be discharged thursday for follow up with outpatient Oncology group. Objective - Vital Signs/Intake and Output Vital Signs (last 24 hours): Temp Pulse Resp BP Pulse Ox 97.3 F L 70 18 189/82 H 100 05/31/17 08:29 05/31/17 09:01 05/31/17 08:29 05/31/17 09:01 05/31/17 08:29 - Medications Medications: Current Medications Acetaminophen (Tylenol 325mg Tab) 650 mg PO Q6 PRN PRN Reason: Fever >100.4 F Last Admin: 05/29/17 16:37 Dose: 650 mg Acetaminophen (Tylenol 325mg Tab) 650 mg PO Q6H PRN PRN Reason: Pain, Mild (1-3), headache Last Admin: 05/30/17 00:12 Dose: 650 mg Aspirin (Aspirin) 325 mg PO DAILY [facility] Last Admin: 05/31/17 08:42 Dose: Not Given Atorvastatin Calcium (Lipitor) 40 mg PO DAILY [facility] Last Admin: 05/31/17 09:01 Dose: 40 mg Dexamethasone (Decadron) 2 mg PO Q12 [facility] Last Admin: 05/31/17 09:01 Dose: 2 mg Enoxaparin Sodium (Lovenox) 30 mg SC DAILY [facility] PRN Reason: Protocol Last Admin: 05/31/17 09:04 Dose: 30 mg Haloperidol Lactate (Haldol) 2 mg IVP Q6 PRN PRN Reason: Agitation Last Admin: 05/30/17 04:16 Dose: 2 mg Labetalol HCl (Trandate) 10 mg IVP Q6H PRN PRN Reason: SBP > 180 Metoprolol Tartrate (Lopressor) 25 mg PO Q12 [facility] Last Admin: 05/31/17 09:01 Dose: 25 mg Nicotine (Nicoderm Cq) 1 patch TD DAILY [facility] Last Admin: 05/31/17 09:02 Dose: 1 patch Pantoprazole Sodium (Protonix Ec Tab) 40 mg PO DAILY [facility] Last Admin: 05/31/17 09:04 Dose: 40 mg Temazepam (Restoril) 15 mg PO HS PRN PRN Reason: Insomnia Last Admin: 05/30/17 00:11 Dose: 15 mg Temazepam (Restoril) 15 mg PO HS [facility] Last Admin: 05/30/17 22:10 Dose: Not Given - Labs Labs: 05/29/17 08:29 05/29/17 04:00 PT 10.0 Seconds (9.8-13.1) 05/27/17 18:30 INR 0.9 (0.9-1.2) 05/27/17 18:30 APTT 22.8 Seconds (25.6-37.1) L 05/27/17 18:30 Assessment and Plan (1) Brain tumor Status: Acute (2) Lung mass Status: Acute (3) Delirium due to general medical condition Status: Acute
[2017-06-01] MEDS ORDERED: Sodium Chloride 0.9% 500 ML IV SCH (08:15)
[2017-06-01] MEDS: Pantoprazole 40 mg EC Tab PO SCH (08:51)
--- NOTE | 2017-06-01 09:22 | CP.PCM.PN ---
Subjective - Date & Time of Evaluation Date of Evaluation: 06/01/17 Time of Evaluation: 09:10 - Subjective Subjective: Sitting OOB with daughter in attendance Alert, awake and coherent Afebrile Breathes at 16 BPM/HR 76BPM, reg BP 126/74 mm Hg JVP flat, no oedema over feet No rales, no gallop Scheduled for Lung biopsy Has been off of ASA sinceFriday, had received couple of doses before that Await IR's decision re proceeding with biopsy Hemodynamically stable to proceed Objective - Vital Signs/Intake and Output Vital Signs (last 24 hours): Temp Pulse Resp BP Pulse Ox 98.3 F 60 18 159/82 H 98 06/01/17 08:00 06/01/17 08:51 06/01/17 08:00 06/01/17 08:51 06/01/17 08:00 - Medications Medications: Current Medications Acetaminophen (Tylenol 325mg Tab) 650 mg PO Q6 PRN PRN Reason: Fever >100.4 F Last Admin: 05/29/17 16:37 Dose: 650 mg Acetaminophen (Tylenol 325mg Tab) 650 mg PO Q6H PRN PRN Reason: Pain, Mild (1-3), headache Last Admin: 05/30/17 00:12 Dose: 650 mg Aspirin (Aspirin) 325 mg PO DAILY [facility] Last Admin: 05/31/17 08:42 Dose: Not Given Atorvastatin Calcium (Lipitor) 40 mg PO DAILY [facility] Last Admin: 06/01/17 08:51 Dose: 40 mg Dexamethasone (Decadron) 2 mg PO Q12 [facility] Last Admin: 06/01/17 08:51 Dose: 2 mg Enoxaparin Sodium (Lovenox) 30 mg SC DAILY [facility] PRN Reason: Protocol Last Admin: 05/31/17 09:04 Dose: 30 mg Haloperidol Lactate (Haldol) 2 mg IVP Q6 PRN PRN Reason: Agitation Last Admin: 05/30/17 04:16 Dose: 2 mg Sodium Chloride (Sodium Chloride 0.9%) 500 mls @ 50 mls/hr IV .Q10H [facility] Stop: 06/01/17 18:14 Last Admin: 06/01/17 09:14 Dose: 50 mls/hr Labetalol HCl (Trandate) 10 mg IVP Q6H PRN PRN Reason: SBP > 180 Lorazepam (Ativan) 0.5 mg PO BID PRN PRN Reason: Anxiety Metoprolol Tartrate (Lopressor) 25 mg PO Q12 [facility] Last Admin: 06/01/17 08:51 Dose: 25 mg Nicotine (Nicoderm Cq) 1 patch TD DAILY [facility] Last Admin: 06/01/17 09:09 Dose: 1 patch Pantoprazole Sodium (Protonix Ec Tab) 40 mg PO DAILY [facility] Last Admin: 06/01/17 08:51 Dose: 40 mg Temazepam (Restoril) 15 mg PO HS PRN PRN Reason: Insomnia Last Admin: 05/30/17 00:11 Dose: 15 mg Temazepam (Restoril) 15 mg PO HS [facility] Last Admin: 05/30/17 22:10 Dose: Not Given - Labs Labs: 05/29/17 08:29 05/29/17 04:00 PT 10.0 Seconds (9.8-13.1) 05/27/17 18:30 INR 0.9 (0.9-1.2) 05/27/17 18:30 APTT 22.8 Seconds (25.6-37.1) L 05/27/17 18:30
--- NOTE | 2017-06-01 10:32 | CP.PCM.PN ---
Subjective - Date & Time of Evaluation Date of Evaluation: 06/01/17 Time of Evaluation: 10:30 - Subjective Subjective: Pt is awake and much more aware today. She claims she is hungry but cannot eat because she needs to be NPO fot the lung biopsy , Biopsy will be done hopefully today Objective - Vital Signs/Intake and Output Vital Signs (last 24 hours): Temp Pulse Resp BP Pulse Ox 98.3 F 60 18 159/82 H 98 06/01/17 08:00 06/01/17 09:00 06/01/17 08:00 06/01/17 08:51 06/01/17 08:00 - Medications Medications: Current Medications Acetaminophen (Tylenol 325mg Tab) 650 mg PO Q6 PRN PRN Reason: Fever >100.4 F Last Admin: 05/29/17 16:37 Dose: 650 mg Acetaminophen (Tylenol 325mg Tab) 650 mg PO Q6H PRN PRN Reason: Pain, Mild (1-3), headache Last Admin: 05/30/17 00:12 Dose: 650 mg Aspirin (Aspirin) 325 mg PO DAILY [facility] Last Admin: 05/31/17 08:42 Dose: Not Given Atorvastatin Calcium (Lipitor) 40 mg PO DAILY [facility] Last Admin: 06/01/17 08:51 Dose: 40 mg Dexamethasone (Decadron) 2 mg PO Q12 [facility] Last Admin: 06/01/17 08:51 Dose: 2 mg Enoxaparin Sodium (Lovenox) 30 mg SC DAILY [facility] PRN Reason: Protocol Last Admin: 05/31/17 09:04 Dose: 30 mg Haloperidol Lactate (Haldol) 2 mg IVP Q6 PRN PRN Reason: Agitation Last Admin: 05/30/17 04:16 Dose: 2 mg Sodium Chloride (Sodium Chloride 0.9%) 500 mls @ 50 mls/hr IV .Q10H [facility] Stop: 06/01/17 18:14 Last Admin: 06/01/17 09:14 Dose: 50 mls/hr Labetalol HCl (Trandate) 10 mg IVP Q6H PRN PRN Reason: SBP > 180 Lorazepam (Ativan) 0.5 mg PO BID PRN PRN Reason: Anxiety Metoprolol Tartrate (Lopressor) 25 mg PO Q12 [facility] Last Admin: 06/01/17 08:51 Dose: 25 mg Nicotine (Nicoderm Cq) 1 patch TD DAILY [facility] Last Admin: 06/01/17 09:09 Dose: 1 patch Pantoprazole Sodium (Protonix Ec Tab) 40 mg PO DAILY [facility] Last Admin: 06/01/17 08:51 Dose: 40 mg Temazepam (Restoril) 15 mg PO HS PRN PRN Reason: Insomnia Last Admin: 05/30/17 00:11 Dose: 15 mg Temazepam (Restoril) 15 mg PO HS [facility] Last Admin: 05/30/17 22:10 Dose: Not Given - Labs Labs: 05/29/17 08:29 05/29/17 04:00 PT 10.0 Seconds (9.8-13.1) 05/27/17 18:30 INR 0.9 (0.9-1.2) 05/27/17 18:30 APTT 22.8 Seconds (25.6-37.1) L 05/27/17 18:30
--- NOTE | 2017-06-01 10:56 | CP.PCM.PN ---
Subjective - Date & Time of Evaluation Date of Evaluation: 06/01/17 Time of Evaluation: 10:54 - Subjective Subjective: Patient is doing better Scheduled for lung biopsy today Has no chest pain or SOB. Objective - Vital Signs/Intake and Output Vital Signs (last 24 hours): Temp Pulse Resp BP Pulse Ox 98.3 F 60 18 159/82 H 98 06/01/17 08:00 06/01/17 09:00 06/01/17 08:00 06/01/17 08:51 06/01/17 08:00 - Medications Medications: Current Medications Acetaminophen (Tylenol 325mg Tab) 650 mg PO Q6 PRN PRN Reason: Fever >100.4 F Last Admin: 05/29/17 16:37 Dose: 650 mg Acetaminophen (Tylenol 325mg Tab) 650 mg PO Q6H PRN PRN Reason: Pain, Mild (1-3), headache Last Admin: 05/30/17 00:12 Dose: 650 mg Aspirin (Aspirin) 325 mg PO DAILY [facility] Last Admin: 05/31/17 08:42 Dose: Not Given Atorvastatin Calcium (Lipitor) 40 mg PO DAILY [facility] Last Admin: 06/01/17 08:51 Dose: 40 mg Dexamethasone (Decadron) 2 mg PO Q12 [facility] Last Admin: 06/01/17 08:51 Dose: 2 mg Dexamethasone (Decadron) 1 mg PO DAILY [facility] Enoxaparin Sodium (Lovenox) 30 mg SC DAILY [facility] PRN Reason: Protocol Last Admin: 05/31/17 09:04 Dose: 30 mg Haloperidol Lactate (Haldol) 2 mg IVP Q6 PRN PRN Reason: Agitation Last Admin: 05/30/17 04:16 Dose: 2 mg Sodium Chloride (Sodium Chloride 0.9%) 500 mls @ 50 mls/hr IV .Q10H [facility] Stop: 06/01/17 18:14 Last Admin: 06/01/17 09:14 Dose: 50 mls/hr Labetalol HCl (Trandate) 10 mg IVP Q6H PRN PRN Reason: SBP > 180 Lorazepam (Ativan) 0.5 mg PO BID PRN PRN Reason: Anxiety Metoprolol Tartrate (Lopressor) 25 mg PO Q12 [facility] Last Admin: 06/01/17 08:51 Dose: 25 mg Nicotine (Nicoderm Cq) 1 patch TD DAILY [facility] Last Admin: 06/01/17 09:09 Dose: 1 patch Pantoprazole Sodium (Protonix Ec Tab) 40 mg PO DAILY [facility] Last Admin: 06/01/17 08:51 Dose: 40 mg Temazepam (Restoril) 15 mg PO HS PRN PRN Reason: Insomnia Last Admin: 05/30/17 00:11 Dose: 15 mg Temazepam (Restoril) 15 mg PO HS [facility] Last Admin: 05/30/17 22:10 Dose: Not Given - Labs Labs: 05/29/17 08:29 05/29/17 04:00 PT 10.0 Seconds (9.8-13.1) 05/27/17 18:30 INR 0.9 (0.9-1.2) 05/27/17 18:30 APTT 22.8 Seconds (25.6-37.1) L 05/27/17 18:30 - Head Exam Head Exam: NORMAL INSPECTION - Eye Exam Eye Exam: Normal appearance - ENT Exam ENT Exam: Mucous Membranes Moist - Respiratory Exam Respiratory Exam: Clear to Ausculation Bilateral - Cardiovascular Exam Cardiovascular Exam: REGULAR RHYTHM - GI/Abdominal Exam GI & Abdominal Exam: Normal Bowel Sounds - Neurological Exam Neurological Exam: Awake Assessment and Plan (1) Brain tumor Status: Acute (2) Lung mass Status: Acute (3) Delirium due to general medical condition Status: Acute - Assessment and Plan (Free Text) Plan: will follow up after lung biopsy all records and imaging films are prepared for family to take t [place]. Cont meds
--- NOTE | 2017-06-01 11:56 | CP.PCM.PN ---
Subjective - Date & Time of Evaluation Date of Evaluation: 06/01/17 Time of Evaluation: 11:54 - Subjective Subjective: Ms. Booth was seen and examined at the bedside. She is alert, oriented. She denies any headache, dizziness, blurred vision, diplopia. She is able to ambulate within her room with moderate assistance. She is schedule for lung biopsy today. There was no untoward events overnight. Objective - Vital Signs/Intake and Output Vital Signs (last 24 hours): Temp Pulse Resp BP Pulse Ox 98.3 F 60 18 159/82 H 98 06/01/17 08:00 06/01/17 09:00 06/01/17 08:00 06/01/17 08:51 06/01/17 08:00 - Medications Medications: Current Medications Acetaminophen (Tylenol 325mg Tab) 650 mg PO Q6 PRN PRN Reason: Fever >100.4 F Last Admin: 05/29/17 16:37 Dose: 650 mg Acetaminophen (Tylenol 325mg Tab) 650 mg PO Q6H PRN PRN Reason: Pain, Mild (1-3), headache Last Admin: 05/30/17 00:12 Dose: 650 mg Aspirin (Aspirin) [address] [facility] Last Admin: 05/31/17 08:42 Dose: Not Given Atorvastatin Calcium (Lipitor) [address] [facility] Last Admin: 06/01/17 08:51 Dose: 40 mg Dexamethasone (Decadron) [address] [facility] Last Admin: 06/01/17 08:51 Dose: 2 mg Dexamethasone (Decadron) [address] [facility] Enoxaparin Sodium (Lovenox) [address] [facility] PRN Reason: Protocol Last Admin: 05/31/17 09:04 Dose: 30 mg Haloperidol Lactate (Haldol) 2 mg IVP Q6 PRN PRN Reason: Agitation Last Admin: 05/30/17 04:16 Dose: 2 mg Sodium Chloride (Sodium Chloride 0.9%) 500 mls @ 50 mls/hr IV .Q10H [facility] Stop: 06/01/17 18:14 Last Admin: 06/01/17 09:14 Dose: 50 mls/hr Labetalol HCl (Trandate) 10 mg IVP Q6H PRN PRN Reason: SBP > 180 Lorazepam (Ativan) 0.5 mg PO BID PRN PRN Reason: Anxiety Metoprolol Tartrate (Lopressor) [address] [facility] Last Admin: 06/01/17 08:51 Dose: 25 mg Nicotine (Nicoderm Cq) [address] [facility] Last Admin: 06/01/17 09:09 Dose: 1 patch Pantoprazole Sodium (Protonix Ec Tab) [address] [facility] Last Admin: 06/01/17 08:51 Dose: 40 mg Temazepam (Restoril) 15 mg PO HS PRN PRN Reason: Insomnia Last Admin: 05/30/17 00:11 Dose: 15 mg Temazepam (Restoril) [address] [facility] Last Admin: 05/30/17 22:10 Dose: Not Given - Labs Labs: 05/29/17 08:29 05/29/17 04:00 PT 10.0 Seconds (9.8-13.1) 05/27/17 18:30 INR 0.9 (0.9-1.2) 05/27/17 18:30 APTT 22.8 Seconds (25.6-37.1) L 05/27/17 18:30 - Constitutional Appears: No Acute Distress - Head Exam Head Exam: NORMAL INSPECTION - Neurological Exam Neurological Exam: Alert, Awake Neuro motor strength exam: Left Upper Extremity: 4, Right Upper Extremity: 4, Left Lower Extremity: 3, Right Lower Extremity: 3 Additional comments: Neurological unchanged from previous examination. Assessment and Plan (1) Intracranial mass Assessment & Plan: Case discussed with Dr. Henderson, continue all current medical, physical therapies. Recommend to follow any orders from oncology. Patient has an appointment with a neurooncologist in [place] this thursday per family. Status: Acute
[2017-06-01] MEDS ORDERED: Midazolam 2 MG/2 ML VIAL ONE (12:53)
[2017-06-01] MEDS ORDERED: Lidocaine 1% Inj (20ml) ONE (13:06)
[2017-06-01] MEDS ORDERED: Sodium Chloride 0.9% 500 ML IV ONE (13:45)
--- NOTE | 2017-06-01 13:46 | PCM.SURG1 ---
Surgeon's Initial Post Op Note - Surgeon's Notes Surgeon: Thien Amaro MD Rocket Assembly Operator: NONE Type of Anesthesia: IV Sedation Pre-Operative Diagnosis: Cavitary right lung mass Operative Findings: CT showed a cavitary peripheral righ lower lung mass. Post-Operative Diagnosis: Cavitary right lung mass Operation Performed: CT guided core biopsy. Two 20-gauge core specimen removed. Specimen/Specimens Removed: 20 gauge x 2 Estimated Blood Loss: EBL {In ML}: 0 Blood Products Given: N/A Drains Used: No Drains Post-Op Condition: Fair Date of Surgery/Procedure: 06/01/17 Time of Surgery/Procedure: 13:40
--- NOTE | 2017-06-01 14:17 | VASCULAR ---
PROCEDURE: Date of procedure: 06/01/2017 Procedure: 1. CT-guided lung mass biopsy, CPT [address] Guidance for biopsy, [address] Medications: The patient was sedated by anesthesiologist along with physiologic monitoring. Dose: 859.97 mGy-cm HISTORY: Cavitary right lung mass TECHNIQUE: Following informed consent, the Pt's chest was marked. The Pt was placed prone on the CT table and procedure time out was performed. A noncontrast CT scan was performed. Noncontrast CT scan confirmed the presence of a peripheral 3.1 cm. A skin localizer was placed on the patient's right back and a repeat CT scan was performed. The skin was marked, prepped, and draped in the usual sterile fashion. After the skin was anesthetized with lidocaine and the patient sedated by the anesthesiologist, a 20 gauge core needle was advanced percutaneously under direct CT guidance into the mass. Upon confirmation of needle position, two 20-gauge core specimens were obtained and sent for routine pathology. The needle was removed and a xeroform dressing was applied. A post biopsy CT scan showed no pneumothorax. IMPRESSION: CT guided core biopsy right lung mass.
--- NOTE | 2017-06-01 14:49 | RAD ---
HISTORY: Status post right lung mass biopsy. COMPARISON: Chest x-ray 05/27/2017 FINDINGS: LUNGS: Right lower lung mass identified. Left lung is clear. PLEURA: There is no pneumothorax following right lung mass biopsy. CARDIOVASCULAR: Normal. OSSEOUS STRUCTURES: No significant abnormalities. VISUALIZED UPPER ABDOMEN: Normal. OTHER FINDINGS: None. IMPRESSION: No pneumothorax following right lung mass biopsy.
[2017-06-02] MEDS: Pantoprazole 40 mg EC Tab PO SCH (09:12)
--- NOTE | 2017-06-02 11:58 | CP.PCM.PN ---
Subjective - Date & Time of Evaluation Date of Evaluation: 06/02/17 Time of Evaluation: 10:30 - Subjective Subjective: Patient stable. Feeling better. Was able to sleep last night better. No acute events. S/P Lung mass biopsy. Pending dispo tomorrow Objective - Vital Signs/Intake and Output Vital Signs (last 24 hours): Temp Pulse Resp BP Pulse Ox 97.4 F L 67 18 136/73 100 06/02/17 08:00 06/02/17 09:12 06/02/17 08:00 06/02/17 09:12 06/02/17 08:00 - Medications Medications: Current Medications Acetaminophen (Tylenol 325mg Tab) 650 mg PO Q6 PRN PRN Reason: Fever >100.4 F Last Admin: 05/29/17 16:37 Dose: 650 mg Acetaminophen (Tylenol 325mg Tab) 650 mg PO Q6H PRN PRN Reason: Pain, Mild (1-3), headache Last Admin: 05/30/17 00:12 Dose: 650 mg Aspirin (Aspirin) 325 mg PO DAILY [facility] Last Admin: 05/31/17 08:42 Dose: Not Given Atorvastatin Calcium (Lipitor) 40 mg PO DAILY [facility] Last Admin: 06/02/17 09:12 Dose: 40 mg Dexamethasone (Decadron) 1 mg PO DAILY [facility] Last Admin: 06/02/17 09:13 Dose: 1 mg Enoxaparin Sodium (Lovenox) 30 mg SC DAILY [facility] PRN Reason: Protocol Last Admin: 05/31/17 09:04 Dose: 30 mg Haloperidol Lactate (Haldol) 2 mg IVP Q6 PRN PRN Reason: Agitation Last Admin: 05/30/17 04:16 Dose: 2 mg Labetalol HCl (Trandate) 10 mg IVP Q6H PRN PRN Reason: SBP > 180 Lorazepam (Ativan) 0.5 mg PO BID PRN PRN Reason: Anxiety Metoprolol Tartrate (Lopressor) 25 mg PO Q12 [facility] Last Admin: 06/02/17 09:12 Dose: 25 mg Nicotine (Nicoderm Cq) 1 patch TD DAILY [facility] Last Admin: 06/02/17 09:12 Dose: 1 patch Pantoprazole Sodium (Protonix Ec Tab) 40 mg PO DAILY [facility] Last Admin: 06/02/17 09:12 Dose: 40 mg Temazepam (Restoril) 15 mg PO HS PRN PRN Reason: Insomnia Last Admin: 05/30/17 00:11 Dose: 15 mg Temazepam (Restoril) 15 mg PO HS [facility] Last Admin: 06/01/17 21:20 Dose: 15 mg - Labs Labs: 05/29/17 08:29 05/29/17 04:00 PT 10.0 Seconds (9.8-13.1) 05/27/17 18:30 INR 0.9 (0.9-1.2) 05/27/17 18:30 APTT 22.8 Seconds (25.6-37.1) L 05/27/17 18:30 - Constitutional Appears: Non-toxic, Chronically Ill - Eye Exam Eye Exam: EOMI, PERRL - ENT Exam ENT Exam: Mucous Membranes Moist - Respiratory Exam Respiratory Exam: NORMAL BREATHING PATTERN. absent: Decreased Breath Sounds, Respiratory Distress - Cardiovascular Exam Cardiovascular Exam: REGULAR RHYTHM, +S1, +S2. absent: Gallop - GI/Abdominal Exam GI & Abdominal Exam: Soft, Normal Bowel Sounds. absent: Tenderness - Neurological Exam Neurological Exam: Alert, Awake, Oriented x3 Additional comments: Confusion markedly improved - Psychiatric Exam Psychiatric exam: Normal Affect, Normal Mood - Skin Skin Exam: Normal Color, Warm Assessment and Plan - Assessment and Plan (Free Text) Assessment: Brain tumor Lung mass Likely Lung Cancer metastatic disease F/U Biopsy results C/W Supportive care Stable For poss DC tomorrow ad f/u as outpatient
--- NOTE | 2017-06-02 12:10 | CP.PCM.PN ---
Subjective - Date & Time of Evaluation Date of Evaluation: 06/02/17 Time of Evaluation: 12:08 - Subjective Subjective: Pt is looking and feeling much better. 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 She also has diffuse brain mets and they are going to see a neurooncologist tomorrow, Objective - Vital Signs/Intake and Output Vital Signs (last 24 hours): Temp Pulse Resp BP Pulse Ox 97.4 F L 67 18 136/73 100 06/02/17 08:00 06/02/17 09:12 06/02/17 08:00 06/02/17 09:12 06/02/17 08:00 - Medications Medications: Current Medications Acetaminophen (Tylenol 325mg Tab) 650 mg PO Q6 PRN PRN Reason: Fever >100.4 F Last Admin: 05/29/17 16:37 Dose: 650 mg Acetaminophen (Tylenol 325mg Tab) 650 mg PO Q6H PRN PRN Reason: Pain, Mild (1-3), headache Last Admin: 05/30/17 00:12 Dose: 650 mg Aspirin (Aspirin) 325 mg PO DAILY [facility] Last Admin: 05/31/17 08:42 Dose: Not Given Atorvastatin Calcium (Lipitor) 40 mg PO DAILY [facility] Last Admin: 06/02/17 09:12 Dose: 40 mg Dexamethasone (Decadron) 1 mg PO DAILY [facility] Last Admin: 06/02/17 09:13 Dose: 1 mg Enoxaparin Sodium (Lovenox) 30 mg SC DAILY [facility] PRN Reason: Protocol Last Admin: 05/31/17 09:04 Dose: 30 mg Haloperidol Lactate (Haldol) 2 mg IVP Q6 PRN PRN Reason: Agitation Last Admin: 05/30/17 04:16 Dose: 2 mg Labetalol HCl (Trandate) 10 mg IVP Q6H PRN PRN Reason: SBP > 180 Lorazepam (Ativan) 0.5 mg PO BID PRN PRN Reason: Anxiety Metoprolol Tartrate (Lopressor) 25 mg PO Q12 [facility] Last Admin: 06/02/17 09:12 Dose: 25 mg Nicotine (Nicoderm Cq) 1 patch TD DAILY [facility] Last Admin: 06/02/17 09:12 Dose: 1 patch Pantoprazole Sodium (Protonix Ec Tab) 40 mg PO DAILY [facility] Last Admin: 06/02/17 09:12 Dose: 40 mg Temazepam (Restoril) 15 mg PO HS PRN PRN Reason: Insomnia Last Admin: 05/30/17 00:11 Dose: 15 mg Temazepam (Restoril) 15 mg PO HS [facility] Last Admin: 06/01/17 21:20 Dose: 15 mg - Labs Labs: 05/29/17 08:29 05/29/17 04:00 PT 10.0 Seconds (9.8-13.1) 05/27/17 18:30 INR 0.9 (0.9-1.2) 05/27/17 18:30 APTT 22.8 Seconds (25.6-37.1) L 05/27/17 18:30
[2017-06-02 12:16] VITALS: RESP 18
[2017-06-03 00:23] VITALS: O2SAT 100
[2017-06-03 08:01] VITALS: BP 147/68; TEMP 98.4
[2017-06-03] MEDS: Pantoprazole 40 mg EC Tab PO SCH (09:37)
[2017-06-03 09:39] VITALS: PULSE 62
--- NOTE | 2017-06-03 10:12 | CP.PCM.PN ---
Subjective - Date & Time of Evaluation Date of Evaluation: 06/03/17 Time of Evaluation: 10:10 - Subjective Subjective: Ms. Booth was seen and examined at the bedside. She is alert, oriented in all spheres. She denies any headache, dizziness, lightheadedness, nausea, or vomiting. She is able to verbalize her neurooncology consult today at [facility]. She is able to feed herself independently and follow simple commands. There was no untoward events overnight. Objective - Vital Signs/Intake and Output Vital Signs (last 24 hours): Temp Pulse Resp BP Pulse Ox 98.4 F 62 18 147/68 100 06/03/17 08:00 06/03/17 09:37 06/03/17 08:00 06/03/17 09:37 06/03/17 08:00 - Medications Medications: Current Medications Acetaminophen (Tylenol 325mg Tab) 650 mg PO Q6 PRN PRN Reason: Fever >100.4 F Last Admin: 05/29/17 16:37 Dose: 650 mg Acetaminophen (Tylenol 325mg Tab) 650 mg PO Q6H PRN PRN Reason: Pain, Mild (1-3), headache Last Admin: 05/30/17 00:12 Dose: 650 mg Aspirin (Aspirin) 325 mg PO DAILY [facility] Last Admin: 05/31/17 08:42 Dose: Not Given Atorvastatin Calcium (Lipitor) 40 mg PO DAILY [facility] Last Admin: 06/03/17 09:37 Dose: 40 mg Dexamethasone (Decadron) 1 mg PO DAILY [facility] Last Admin: 06/03/17 09:36 Dose: 1 mg Enoxaparin Sodium (Lovenox) 30 mg SC DAILY [facility] PRN Reason: Protocol Last Admin: 05/31/17 09:04 Dose: 30 mg Haloperidol Lactate (Haldol) 2 mg IVP Q6 PRN PRN Reason: Agitation Last Admin: 05/30/17 04:16 Dose: 2 mg Labetalol HCl (Trandate) 10 mg IVP Q6H PRN PRN Reason: SBP > 180 Lorazepam (Ativan) 0.5 mg PO BID PRN PRN Reason: Anxiety Metoprolol Tartrate (Lopressor) 25 mg PO Q12 [facility] Last Admin: 06/03/17 09:37 Dose: 25 mg Nicotine (Nicoderm Cq) 1 patch TD DAILY [facility] Last Admin: 06/03/17 09:37 Dose: 1 patch Pantoprazole Sodium (Protonix Ec Tab) 40 mg PO DAILY [facility] Last Admin: 06/03/17 09:37 Dose: 40 mg Temazepam (Restoril) 15 mg PO HS PRN PRN Reason: Insomnia Last Admin: 05/30/17 00:11 Dose: 15 mg Temazepam (Restoril) 15 mg PO HS [facility] Last Admin: 06/02/17 23:09 Dose: 15 mg - Labs Labs: 05/29/17 08:29 05/29/17 04:00 PT 10.0 Seconds (9.8-13.1) 05/27/17 18:30 INR 0.9 (0.9-1.2) 05/27/17 18:30 APTT 22.8 Seconds (25.6-37.1) L 05/27/17 18:30 - Constitutional Appears: No Acute Distress - Head Exam Head Exam: NORMAL INSPECTION - Neurological Exam Neurological Exam: Alert, Awake, Oriented x3 Neuro motor strength exam: Left Upper Extremity: 4, Right Upper Extremity: 4, Left Lower Extremity: 4, Right Lower Extremity: 4 Additional comments: She is more alert, oriented today in comparison from previous examination, follow commands. Assessment and Plan (1) Intracranial mass Assessment & Plan: Case discussed with Dr. Henderson, continue all current medical and physical regimens. Recommend to follow any orders from neurooncologist. Status: Acute
--- NOTE | 2017-06-03 11:00 | CP.PCM.DIS ---
Provider - Provider Date of Admission: 05/27/17 19:36 Attending physician: Colten Muniz MD Consults: Hem-Onc Neurology Cardiology ICU Time Spent in preparation of Discharge (in minutes): 35 Diagnosis - Discharge Diagnosis (1) Brain tumor Status: Chronic Comment: Likely metastatic lesions from Lung Ca. STable. To be eval by Neuro- onc today (2) Delirium due to general medical condition Status: Resolved Comment: Likely due to cerebral edema/Brain lesions. S/P Decadron (3) Lung mass Status: Chronic Comment: Hx of lung Ca. Lung Biopsy this time Non SCC partial report Hospital Course - Lab Results Lab Results: Micro Results 05/29/17 18:30 Naris MRSA Culture (Admit) - Final MRSA NOT DETECTED 05/27/17 08:38 Naris MRSA Culture (Admit) - Final MRSA NOT DETECTED Most Recent Lab Values WBC 9.4 K/uL (4.8-10.8) 05/29/17 08:29 RBC 3.49 Mil/uL (3.80-5.20) L 05/29/17 08:29 Hgb 11.7 g/dL (12.0-16.0) L 05/29/17 08:29 Hct 33.1 % (34.0-47.0) L 05/29/17 08:29 MCV 94.9 fl (81.0-99.0) 05/29/17 08:29 MCH 33.4 pg (27.0-31.0) H 05/29/17 08:29 MCHC 35.2 g/dL (33.0-37.0) 05/29/17 08:29 RDW 13.1 % (11.5-14.5) 05/29/17 08:29 Plt Count 227 K/uL (130-400) 05/29/17 08:29 MPV 8.1 fl (7.2-11.7) 05/29/17 08:29 Neut % (Auto) 91.2 % (50.0-75.0) H 05/29/17 08:29 Lymph % (Auto) 4.4 % (20.0-40.0) L 05/29/17 08:29 [place] % (Auto) 4.3 % (0.0-10.0) 05/29/17 08:29 Eos % (Auto) 0.0 % (0.0-4.0) 05/29/17 08:29 Baso % (Auto) 0.1 % (0.0-2.0) 05/29/17 08:29 Neut # (Auto) 8.5 K/uL (1.8-7.0) H 05/29/17 08:29 Lymph # (Auto) 0.4 K/uL (1.0-4.3) L 05/29/17 08:29 [place] # (Auto) 0.4 K/uL (0.0-0.8) 05/29/17 08:29 Eos # (Auto) 0.0 K/uL (0.0-0.7) 05/29/17 08:29 Baso # (Auto) 0.0 K/uL (0.0-0.2) 05/29/17 08:29 Neutrophils % (Manual) 90 % (42-75) H 05/29/17 08:29 Band Neutrophils % 1 % (0-2) 05/29/17 08: Lymphocytes % (Manual) 3 % (20-50) L 05/29/17 08:29 Monocytes % (Manual) 6 % (0-10) 05/29/17 08:29 Platelet Estimate Normal (NORMAL) 05/29/17 08:29 Poikilocytosis (manual Slight 05/29/17 08:29 Anisocytosis (manual) Slight 05/29/17 08:29 PT 10.0 Seconds (9.8-13.1) 05/27/17 18:30 INR 0.9 (0.9-1.2) 05/27/17 18:30 APTT 22.8 Seconds (25.6-37.1) L 05/27/17 18:30 Sodium 129 mmol/l (132-148) L 05/29/17 04:00 Potassium 4.7 MMOL/L (3.6-5.0) 05/29/17 04:00 Chloride 98 mmol/L (98-107) 05/29/17 04:00 Carbon Dioxide 18 mmol/L (22-30) L 05/29/17 04:00 Anion Gap 18 (10-20) 05/29/17 04:00 BUN 39 mg/dl (7-17) H 05/29/17 04:00 Creatinine 1.2 mg/dl (0.7-1.2) 05/29/17 04:00 Est GFR ( Amer) 52 05/29/17 04:00 Est GFR (Non-Af Amer) 43 05/29/17 04:00 POC Glucose (mg/dL) 95 mg/dL (65-110) 06/01/17 14:13 Random Glucose 146 mg/dL (65-105) H 05/29/17 04:00 Hemoglobin A1c 4.8 % (4.2-6.5) 05/27/17 18:57 Calcium 9.1 mg/dL (8.4-10.2) 05/29/17 04:00 Total Bilirubin 0.7 mg/dl (0.2-1.3) 05/29/17 04:00 AST 46 U/L (14-36) H D 05/29/17 04:00 ALT 22 U/L (9-52) 05/29/17 04:00 Alkaline Phosphatase 76 U/L (38-126) 05/29/17 04:00 Troponin I 2.5100 ng/mL (0.00-0.120) H* 05/29/17 08:29 C-Reactive Prot, Quant 1.0 mg/L (<8.0) 05/29/17 08:29 Total Protein 7.7 G/DL (6.3-8.2) 05/29/17 04:00 Albumin 4.0 g/dL (3.5-5.0) 05/29/17 04:00 Globulin 3.7 gm/dL (2.2-3.9) 05/29/17 04:00 Albumin/Globulin Ratio 1.1 (1.0-2.1) 05/29/17 04:00 Triglycerides 112 mg/DL (0-149) 05/27/17 18:30 Cholesterol 165 mg/dL (0-199) 05/27/17 18:30 LDL Cholesterol Direct 55 mg/dL (0-129) 05/27/17 18:30 HDL Cholesterol 83 MG/DL (30-70) H 05/27/17 18:30 IgE 98 kU/L (<dz=175) 05/29/17 08:29 Aspergillus Antigen Not detected (Not Detected) 05/29/17 08:29 Aspergillus flavus Ab Negative (Negative) 05/29/17 08:29 Aspergill fumigatus Ab Negative (Negative) 05/29/17 08:29 Aspergillus niger Ab Negative (Negative) 05/29/17 08:29 Aspergillus Index Value 0.15 (<0.50) 05/29/17 08:29 Blood Type O POSITIVE 18 18:30 Blood Type Confirm O POSITIVE 05/27/17 19:37 Antibody Screen Negative 05/27/17 18:30 BBK History Checked No verified bt 05/27/17 18:30 - Hospital Course Hospital Course: 81 y/o F with PMhx of lung Ca s/p lobectomy years ago presented to ED with Family with c/o AMS. Patient was found to have multiple brain metastatic like lesions and CT of the Chest showed a mass in the lower right lung suspicious for malignancy. Patient was treated with steroids to improved cerebral edema and delirium resolved. She underwent lung biopsy that prelim reports is c/w non small cell Ca. Patient was also found to have elevated troponins and was evalauted by [employer] Sales Representative, she remained asymptomatic with no acute changes on EKG. She has appt today at [facility] for Neuro-oncologist william and is to be DC and f/u as outpatient Discharge Exam - Head Exam Head Exam: NORMAL INSPECTION - Eye Exam Eye Exam: EOMI, PERRL - Respiratory Exam Respiratory Exam: NORMAL BREATHING PATTERN. absent: Rales, Rhonchi - Cardiovascular Exam Cardiovascular Exam: REGULAR RHYTHM, +S1, +S2. absent: Gallop - GI/Abdominal Exam GI & Abdominal Exam: Normal Bowel Sounds, Unremarkable. absent: Tenderness - Neurological Exam Neurological exam: Alert, Oriented x3 - Psychiatric Exam Psychiatric exam: Normal Affect, Normal Mood - Skin Skin Exam: Normal Color, Warm Discharge Plan - Discharge Medications Prescriptions: Atorvastatin [Lipitor] 40 mg PO DAILY #30 tab Metoprolol Tartrate [Lopressor] 25 mg PO Q12 #60 tab Pantoprazole [Protonix EC Tab] 40 mg PO DAILY #30 ect - Follow Up Plan Condition: FAIR Disposition: HOME/ ROUTINE Instructions: Brain Tumor, Adult (DC) Additional Instructions: Instructed to follow up with [facility]. Referrals: Michael Stokes MD [Medical Doctor] -
--- NOTE | 2017-06-03 11:10 | CP.PCM.PN ---
Subjective - Date & Time of Evaluation Date of Evaluation: 06/03/17 Time of Evaluation: 11:03 - Subjective Subjective: Pt's priliminary pathology diagnosis is NSCLC, but specimen has been sent for immunohistochemical staining She is being discharged today to be seen by a neuro oncologist. Objective - Vital Signs/Intake and Output Vital Signs (last 24 hours): Temp Pulse Resp BP Pulse Ox 98.4 F 62 18 147/68 100 06/03/17 08:00 06/03/17 09:37 06/03/17 08:00 06/03/17 09:37 06/03/17 08:00 - Medications Medications: Current Medications Acetaminophen (Tylenol 325mg Tab) 650 mg PO Q6 PRN PRN Reason: Fever >100.4 F Last Admin: 05/29/17 16:37 Dose: 650 mg Acetaminophen (Tylenol 325mg Tab) 650 mg PO Q6H PRN PRN Reason: Pain, Mild (1-3), headache Last Admin: 05/30/17 00:12 Dose: 650 mg Aspirin (Aspirin) 325 mg PO DAILY [facility] Last Admin: 05/31/17 08:42 Dose: Not Given Atorvastatin Calcium (Lipitor) 40 mg PO DAILY [facility] Last Admin: 06/03/17 09:37 Dose: 40 mg Dexamethasone (Decadron) 1 mg PO DAILY [facility] Last Admin: 06/03/17 09:36 Dose: 1 mg Enoxaparin Sodium (Lovenox) 30 mg SC DAILY [facility] PRN Reason: Protocol Last Admin: 05/31/17 09:04 Dose: 30 mg Haloperidol Lactate (Haldol) 2 mg IVP Q6 PRN PRN Reason: Agitation Last Admin: 05/30/17 04:16 Dose: 2 mg Labetalol HCl (Trandate) 10 mg IVP Q6H PRN PRN Reason: SBP > 180 Lorazepam (Ativan) 0.5 mg PO BID PRN PRN Reason: Anxiety Metoprolol Tartrate (Lopressor) 25 mg PO Q12 [facility] Last Admin: 06/03/17 09:37 Dose: 25 mg Nicotine (Nicoderm Cq) 1 patch TD DAILY [facility] Last Admin: 06/03/17 09:37 Dose: 1 patch Pantoprazole Sodium (Protonix Ec Tab) 40 mg PO DAILY [facility] Last Admin: 06/03/17 09:37 Dose: 40 mg Temazepam (Restoril) 15 mg PO HS PRN PRN Reason: Insomnia Last Admin: 05/30/17 00:11 Dose: 15 mg Temazepam (Restoril) 15 mg PO HS [facility] Last Admin: 06/02/17 23:09 Dose: 15 mg - Labs Labs: 05/29/17 08:29 05/29/17 04:00 PT 10.0 Seconds (9.8-13.1) 05/27/17 18:30 INR 0.9 (0.9-1.2) 05/27/17 18:30 APTT 22.8 Seconds (25.6-37.1) L 05/27/17 18:30
== END 2017-06-03 13:17 | disposition home or self-care (01) | DRG 54 ==
LOC: H.ER 17:40 → H.ERHOLD 19:36 → H.ICU/CCU 22:11 → H.TEL 05-29 18:26
PROVIDERS: ADMIT Family Medicine; ATTEND Family Medicine
PROC: 3E0234Z Introduction of Serum, Toxoid and Vaccine into Muscle, Percutaneous Approach (ICD-10-PCS; 2017-05-29)
PROC: 0BBF3ZX Excision of Right Lower Lung Lobe, Percutaneous Approach, Diagnostic (ICD-10-PCS; principal; 2017-06-01 13:30)
DX: C79.31 Secondary malignant neoplasm of brain (principal); G93.6 Cerebral edema; C34.31 Malignant neoplasm of lower lobe, right bronchus or lung; F05 Delirium due to known physiological condition; E11.65 Type 2 diabetes mellitus with hyperglycemia; E78.5 Hyperlipidemia, unspecified; E78.00 Pure hypercholesterolemia, unspecified; I10 Essential (primary) hypertension; I34.0 Nonrheumatic mitral (valve) insufficiency; R56.9 Unspecified convulsions; Z85.118 Personal history of other malignant neoplasm of bronchus and lung; Z90.2 Acquired absence of lung [part of]; F17.200 Nicotine dependence, unspecified, uncomplicated; Z23 Encounter for immunization; Z79.51 Long term (current) use of inhaled steroids; Z79.84 Long term (current) use of oral hypoglycemic drugs; R74.8 Abnormal levels of other serum enzymes